=== PATIENT | female | born 1925 | race Caucasian/White ===

== ENCOUNTER 2016-07-28 08:46 | Emergency (ER) | payer OTHER ==
--- NOTE | 2016-07-28 11:33 | ED ORDER SUMMARY ---
..... Patient: OLIVIA GASTON OrderSheet [facility] VisitID: [id number] [address] [place] [address] 89y, F Registration Date/Time: 07/28/2016 ORDER SHEET Weight: 58.9 kg (stated) Allergies: Codeine, Fentanyl GENERAL ORDERS: Pediatric Physician Assistant (Continuous) (:07/28/2016 SBalde R.N. per protocol) (9:34 MWinterer R.N.) UA-Culture if indicated Urgent (:07/28/2016 SBalde R.N. per protocol) (9:34 MWinterer R.N.) CBC w Diff Urgent (:07/28/2016 SBalde R.N. per protocol) (9:34 MWinterer R.N.) CMP Urgent (:07/28/2016 SBalde R.N. per protocol) (9:34 MWinterer R.N.) EKG - ER Stat (:07/28/2016 SBalde R.N. per protocol) (10:08 [place]) (Cancelled: Not ordered by me and not [id number] [place]) Pulse oximeter (:07/28/2016 SBalde R.N. per protocol) (9:34 MWinterer R.N.) Blood Culture (No) (N/A) Urgent (09:26 07/28/2016 [place]) (9:34 MWinterer R.N.) MEDICATION ORDERS: IV FLUIDS: IV Saline Lock (:07/28/2016 SBalde R.N. per protocol) (9:15 SBalde R.N.) IV NS : initial bolus 500 mL (1000 mL/hr), then 1000 mL/hr for X1 (NOW) (10:04 07/28/2016 [place]) (Ack 10:19 MWinterer R.N.) (10:24 MWinterer R.N.) Ceftriaxone IV 1 gm/50mL (NOW) (11:59 07/28/2016 [place]) (12:10 DREassadarrick R.N.) ORDER SHEET NOTES: [Electronically signed by Leif Taylor Dr. (11:39 07/28/2016)] [Electronically signed by Deborah Carrion R.N. (14:07/28/2016)] [Electronically locked/signed by Deborah Carrion R.N. (07/28/2016)]
--- NOTE | 2016-07-28 11:33 | ED NURSING NOTES ---
Clinical Report - Nurses [facility] [address] [place] [address] 07/28/2016 8:48 Patient: OLIVIA GASTON TRIAGE Triage time 08:52 Jul 28 2016. Acuity: LEVEL 3. Chief Complaint: DIZZINESS and WEAKNESS. Alert. No acute distress. JB COMA SCORE: [place] Coma Scale: 15- eyes open spontaneously (4); best verbal response- oriented x 4 (5); best motor response- obeys commands (6). --09:10 Lory Joseph R.N. 08:51 07/28/16. BP: 146/84. HR: 74. RR: 18. O2 saturation: 100%. Temp: 98.5 F. Pain level now 10/21. --09:10 Lory Joseph R.N. Weight: 58.9 kg stated. Height/Length: 66 inches Per Patient. BMI: 21. --08:51 Lory Joseph R.N. Medications Acetaminophen Oral (Tablet 325 mg) 2 tablets, 4x a day as needed (Pain). Aspirin Oral (Tablet 81 mg) 1 tablet, daily. Atorvastatin Calcium Oral (Tablet 10 mg) 1/2 tablet, 2x a day. Benzonatate Oral (Capsule 100 mg) 1 capsule, 3x a day. Docusate Calcium Oral 100 mg, twice daily. Ferrous Sulfate Oral (Tablet 325 (65 Fe) mg) 1 tablet, daily. Levobunolol HCl Ophthalmic (Solution 0.5 %) 1 drop (R eye). Lisinopril Oral (Tablet 20 mg) 1 tablet, daily. Lumigan Ophthalmic (Solution 0.01 %) 1 drop (R eye). Metoprolol Tartrate Oral (Tablet 50 mg) 1 tablet, daily. ProAir HFA Inhalation 2 puffs, daily. Refresh Ophthalmic 2 drops, every 4 hours as needed. Senna Oral (Tablet 8.6 mg) 2 tablets, daily as needed. Tramadol HCL Oral (Tablet 50 mg) 1 tablet, daily. --09:09 Jake, Lory, R.N. Allergies Codeine. Fentanyl. --: Loyr Joseph R.N. History Arrived by EMS. Historian: patient. ( "MY HEAD IS ALL CONFUSED". "I FEEL LIKE I CAN'T GET UP, I DON'T KNOW WHAT'S GOING ON". "SLEEP ALOT"). This started SINCE THE HOLIDAYS. Treatment HEALTH PLAN SPECIALIST: None. SOCIAL HX: Former smoker. No alcohol use or drug use. No infectious disease exposure. FALL RISK ASSESSMENT: Fall risk assessment completed. No fall risk identified. NUTRITIONAL RISK ASSESSMENT: The nutritional risk assessment revealed no deficiencies. FUNCTIONAL ASSESSMENT: Functional assessment: no impairments noted. LEARNING NEEDS ASSESSMENT: The learning needs assessment revealed no barriers. SKIN INTEGRITY ASSESSMENT: Skin integrity risk assessment completed. No skin integrity risk identified. --: Lory Joseph R.N. PROBLEMS: Diarrhea. Renal Insufficiency. Dehydration. Cystitis. Pelvic Fracture. Oral Anticoagulation Therapy. Glaucoma. Hypertension. Pacemaker. Hyponatremia. Pressure Ulcer. Spinal Fracture. Anemia. Back Pain. Abrasion(s). Contusion. Tetanus Status. Abdominal Pain. Sjogren's syndrome. Arthritis. Vertigo. Abnormal Test. LNMP - Last Normal Menstrual Period. Fall. Pneumonia. Immunizations. Incontinence. Neuropathy. URI. Glaucoma in right eye. TIA - Transient Ischemic Attack. UTI - Urinary Tract Infection. Bradycardia. --: Lory Joseph R.N. ADDITIONAL SURGERIES: Appendectomy. Cataract Surgery. Hysterectomy. Pacemaker. Tonsillectomy. --: Lory Joseph R.N. Interventions ID band on patient. To room. --: Lory Joseph R.N. PHYSICAL ASSESSMENT To room via stretcher. GENERAL / NEURO / PSYCH: Appears anxious. HEENT: Pupils equal, round and reactive to light. RESPIRATORY: Respirations not labored. CVS: Capillary refill less than 2 seconds. GI / : Abdominal tenderness in the lower abdomen. --:16 Lory Joseph R.N. SKIN: Skin is warm and dry. --:16 Lory Joseph R.N. SKIN: ( pt has a dime size skin breakdown on the tailbone, superficial abrasions around the tailbone area and upper buttock. Zinc cream applied.). --11:55 Lory Joseph R.N. NURSING PROGRESS NOTES Patient ID band checked. Catheterized urine collected with return of yellow-colored cloudy urine, sediment noted; sample sent to lab for urinalysis. Specimen labeled in the presence of the patient. --09:11 Lory Joseph R.N. personnel monitor, pulse oximeter and NIBP monitor placed on patient; equipment monitor phototypesetting- Lead II. Patient gowned. Patient ready for evaluation- chart flagged and ED physician notified. --09:11 Lory Joseph R.N. 09:12 07/28/2016 Site #1 started via IV in the left forearm with an 20g angiocath; one attempt. Blood drawn: rainbow set. Labeled in the presence of the patient and sent to the lab. Saline lock flushed with 10 mL saline. --09:12 Lory Joseph R.N. 10:24 07/28/2016 Started bag #1 1000 mL IV Fluids IV NS (Saline); at 999 mL/hr over 30 minute(s) via site #1 via IV pump. Allergies verified and confirmed 5 rights. IV patency established. IV site checked: no pain, redness, or swelling. IV flushed thoroughly pre- and post-medication administration. --10:24 Nadia Uribe R.N. 10:45 07/28/16. BP: 162/62. HR: 60. RR: 12. O2 saturation: 99% on room air. Pain level now: 0/10. --10:58 Deborah Carrion R.N. Cardiac rhythm: atrial pacing. Monitoring of patient in place. Patient hygiene performed. Patient is incontinent of urine. Changed patient linens and diaper. Warming measures: blanket applied. Reassurance given and given. The patient is calm and resting quietly. ( Pt repositioned for comfort.). GENERAL / NEURO / PSYCH: Patient is calm and cooperative. Affect appears normal. Alert. Oriented X 4. RESPIRATORY: No respiratory distress. SKIN: Skin is warm and dry. Patient identifiers checked. Call light placed in reach. Side rails up x 2. Bed placed in lowest position. Brakes of bed on. Brakes of chair on. --10:58 Deborah Carrion R.N. EKG time: (10:06 AM). EKG was performed by a micha and shown to the ED physician. --11:19 Rhiannon Navarro 12:10 07/28/2016 Started 1 gm of Ceftriaxone IVPB in bag #1 50 mL; at 150 mL/hr over 1 hour(s) via site #1 via IV pump. Allergies verified and confirmed 5 rights. IV patency established. IV site checked: no pain, redness, or swelling. IV flushed thoroughly pre- and post-medication administration. --12:10 Deborah Carrion R.N. 12:10 07/28/2016 IV Fluids IV NS Response: no adverse reaction symptoms have improved. --12:10 Deborah Carrion R.N. Cardiac rhythm: atrial pacing; (atrial rate). Monitoring of patient in place. Reassurance given. Reassessment after fluids administered. She is calm and resting quietly. Overall patient status is improved- she states feels better. ( Family at bedside, IV antibiotics infusing as ordered, will be discharging soon, arranging ride back to facility). GENERAL / NEURO / PSYCH: Denies anxiety or headache. Patient is calm and cooperative. Affect appears normal. Alert. Oriented X 4. RESPIRATORY: Denies difficulty breathing. No respiratory distress. CVS: Denies chest pain. Cardiac rhythm: atrial pacing. SKIN: Skin is warm and dry. Patient identifiers checked. Side rails up. Brakes of bed on. Brakes of chair on. --12:16 Deborah Carrion R.N. 12:10 07/28/16. BP: 149/70 (regular adult cuff) taken on the right arm, while lying. HR: 65. RR: 18. O2 saturation: 96% on room air. Temp: 98.2 F (oral). Pain level now: 0/10. --12:16 Deborah Carrion R.N. ( [facility] updated on pt status. Pt will be returning via [facility] because pt is w/c bound. Family aware. A RX was sent with family to have CSL fill. A [employer] was sent along for skin breakdown and some Zinc ointment provided for skin. Family aware of all of this.). --12:43 Lory Joseph R.N. 12:46 07/28/2016 Ceftriaxone IVPB Discontinued: infused. Total amount infused: 50 mL. IV patency established. IV site checked: no pain, redness, or swelling. IV flushed thoroughly. --12:46 Lory Joseph R.N. 14:00 07/28/2016 IV Fluids IV NS Discontinued: bag #1 completed upon discharge. Total amount infused: 750 mL. --14:30 Deborah Carrion R.N. DISPOSITION / DISCHARGE Report was given. (Bárbara WILDER has been given report.). --12:44 Lory Joseph R.N. 13:38 07/28/2016 Site #1 removed upon discharge. Catheter intact. Manual pressure and bandaid applied. --13:48 Deborah Carrion R.N. Condition at departure: improved and stable. The goals identified in the patient's plan of care were met. Fall risk assessment completed. Risk factors identified include patient age greater than 65 years and impairment of mobility. Fall interventions initiated. Patient placed in wheelchair. Call light in reach of patient. Instructed not to get up without assistance. No learning barriers present. Discharge instructions provided and reviewed ([facility]). Reviewed medication(s) side effects, precautions, dosing and course information. Prescription(s) given to the public relations professional (Rx given to family). Family verbalized understanding. Written instructions provided in French. The patient was discharged by the physician. She was discharged to the longterm and accompanied by [facility]. She left the Emergency Department in a wheelchair. Driving ([facility]). Transferred. Summary of care provided to transfer facility via paper and fax. Transported via wheelchair. JB COMA SCORE: Jb Coma Scale: 15- eyes open spontaneously (4); best verbal response- oriented x 4 (5); best motor response- obeys commands (6). --13:52 Deborah Carrion R.N. 13:40 07/28/16. BP: 127/96 (regular adult cuff) taken on the right arm, via an automated monitor, while lying. HR: 60. RR: 14. O2 saturation: 98% on room air. Temp: 98.2 F (oral). Pain level now: 0/10. --13:52 Deborah Carrion R.N. Departure time: 1430 PM. ( Transported via wheelchair back to facility safely,). --14:29 Deborah Carrion R.N. Locked/Released at 07/28/2016 14:30 by Deborah Carrion R.N.
--- NOTE | 2016-07-28 11:33 | ED ORDER SUMMARY ---
..... Patient: OLIVIA GASTON OrderSheet [facility] VisitID: [id number] [address] [place] [address] 89y, F Registration Date/Time: 07/28/2016 ORDER SHEET Weight: 58.9 kg (stated) Allergies: Codeine, Fentanyl GENERAL ORDERS: Cotton Classer Aide (Continuous) (:07/28/2016 SBalde R.N. per protocol) (9:34 MWinterer R.N.) UA-Culture if indicated Urgent (:07/28/2016 SBalde R.N. per protocol) (9:34 MWinterer R.N.) CBC w Diff Urgent (:07/28/2016 SBalde R.N. per protocol) (9:34 MWinterer R.N.) CMP Urgent (:07/28/2016 SBalde R.N. per protocol) (9:34 MWinterer R.N.) EKG - ER Stat (:07/28/2016 SBalde R.N. per protocol) (10:08 [place]) (Cancelled: Not ordered by me and not :14 [place]) Pulse oximeter (:07/28/2016 SBalde R.N. per protocol) (9:34 MWinterer R.N.) Blood Culture (No) (N/A) Urgent (09:26 07/28/2016 [place]) (9:34 MWinterer R.N.) MEDICATION ORDERS: IV FLUIDS: IV Saline Lock (:07/28/2016 SBalde R.N. per protocol) (9:15 SBalde R.N.) IV NS : initial bolus 500 mL (1000 mL/hr), then 1000 mL/hr for X1 (NOW) (10:04 07/28/2016 [place]) (Ack 10:19 MWinterer R.N.) (10:24 MWinterer R.N.) Ceftriaxone IV 1 gm/50mL (NOW) (11:59 07/28/2016 [place]) (12:10 DREassadarrick R.N.) ORDER SHEET NOTES: [Electronically signed by Leif Taylor Dr. (11:39 07/28/2016)] [Electronically signed by Deborah Carrion R.N. (14:07/28/2016)] [Electronically locked/signed by Deborah Carrion R.N. (07/28/2016)]
--- NOTE | 2016-07-28 11:33 | ED CLINICAL REPORT ---
Clinical Report - Physicians/Mid Levels [facility] [address] [place] [address] 07/28/2016 8:48 Patient: OLIVIA GASTON Time Seen: 09:04; initial patient contact. Arrived- By ambulance. Historian- patient. HISTORY OF PRESENT ILLNESS Chief Complaint: DYSURIA. This started about 2 weeks ago and still present. The symptoms are described as mild. Modifying factors- worsened by urination. Not relieved by anything. The patient has had mild, constant abdominal pain. The pain is described as located in the suprapubic region. No nausea, vomiting, diarrhea or radiation of abdominal pain to the back. No low back pain, flank pain, vaginal discharge, pain with urination or hematuria. The patient has had urinary frequency. The patient has had urgency of urination. Not sexually active. (Outpt Tx ~ 2 weeks ago by PCP, seemed to clear up initial UTI, had diarrhea for several days but cleared up. UTI symptoms returned.). Similar symptoms previously: Several times. Recent medical care: Not recently seen/assessed. REVIEW OF SYSTEMS No nausea, vomiting, diarrhea or fever. She has had chills. All systems otherwise negative, except as recorded above. PAST HISTORY ( Diarrhea. Renal Insufficiency. Dehydration. Cystitis. Pelvic Fracture. Oral Anticoagulation Therapy. Glaucoma. Hypertension. Pacemaker. Hyponatremia. Pressure Ulcer. Spinal Fracture. Anemia. Back Pain. Abrasion(s). Contusion. Tetanus Status. Abdominal Pain. Sjogren's syndrome. Arthritis. Vertigo. Abnormal Test. LNMP - Last Normal Menstrual Period. Fall. Pneumonia. Immunizations. Incontinence. Neuropathy. URI. Glaucoma in right eye. TIA - Transient Ischemic Attack. UTI - Urinary Tract Infection. Bradycardia. SURGERIES: Appendectomy. Cataract Surgery. Hysterectomy. Pacemaker. Tonsillectomy.). SOCIAL HISTORY Former smoker. No alcohol use or drug use. ADDITIONAL NOTES The nursing notes have been reviewed with agreement regarding the chief complaint, PMH and patient medications and allergies. PHYSICAL EXAM Vital Signs: 07/28/2016 08:51 BP: 146/84. HR: 74. RR: 18. O2 saturation: 100%. Temp: 98.5 F. Have been reviewed. Hypertensive. Heart rate normal. Respiratory rate normal. Temperature normal. Oxygen saturation normal. Appearance: Alert. Oriented X3. No acute distress. ENT: Dry mucous membranes present (Pt has Sjorgrens.). Neck: Neck supple. CVS: Bradycardia. Heart sounds normal. Rhythm normal. Respiratory: No respiratory distress. Breath sounds normal. Abdomen: Soft. Mild tenderness in the suprapubic area. No guarding or rebound tenderness. Bowel sounds normal. No mass. Skin: Skin warm and dry. Normal skin color. Normal skin turgor. Extremities: No calf tenderness. No lower extremity edema. Neuro: Oriented X 3. Mood/affect normal. No motor deficit. LABS, X-RAYS, AND EKG Laboratory Tests: UA-Culture if indicated: (MICHELLE: 07/28/2016 09:00) ( [facility] 10:18) Final results Test Result Flag Units (Reference) URINE COLOR YELLOW URINE APPEARANCE CLOUDY URINE GLUCOSE NEGATIVE (NEGATIVE) URINE BILIRUBIN NEGATIVE (NEGATIVE) URINE KETONE NEGATIVE (NEGATIVE) URINE SPECIFIC GRAVITY 1.025 (1.010-1.030) URINE PH 6.0 (5.0-8.0) URINE PROTEIN 2+ (NEGATIVE) URINE UROBILINOGEN 0.2 EU/dL (0.2-1.0) URINE NITRITE POSITIVE (NEGATIVE) URINE BLOOD 3+ (NEGATIVE) URINE LEUK ESTERASE POSITIVE (NEGATIVE) URINE RBC 50-75 rbc/hpf (0-1) URINE WBC >100 wbc/hpf (0-1) URINE EPITHELIAL CELLS NONE SEEN EPI/hpf (0-5) URINE BACTERIA MODERATE (2+ TO 3+) (NONE SEEN) URINE COMMENT CULTURE INDICATED URINE CULTURES ARE SET-UP BASED ON THE FOLLOWING CRITERIA:POSITIVE NITRITEPOSITIVE LEUKOCYTE ESTERASEGREATER THAN 10 WHITE BLOOD CELLSMODERATE (2+) OR GREATER BACTERIA CBC w Diff: (MICHELLE: 07/28/2016 09:15) ( [facility] [place] 07/28/2016 10:06) Final results Test Result Flag Units (Reference) WHITE BLOOD COUNT 8.5 K/uL (4.5-11.5) RED BLOOD COUNT 3.54 L M/uL (4.00-5.20) HEMOGLOBIN 10.2 L gm/dL (12.0-16.0) HEMATOCRIT 31.0 L % (36.0-46.0) MEAN CELL VOLUME 88 fL (80-100) MEAN CORPUSCULAR HGB 29 pg (26-34) MEAN CORPUSCULAR HGB CONC 33 g/dL (31-37) RED CELL DISTRIBUTION WIDTH 15.3 H % (11.6-14.8) PLATELET COUNT 202 K/uL (150-400) NEUTROPHIL % 58.0 % (50-75) LYMPH % 28.2 % (25-40) MONO % 10.7 % (3-14) EOSINOPHIL % 2.6 % (0-4) BASOPHIL % 0.5 % (0-2) CMP: (MICHELLE: 07/28/2016 09:15) ( [facility] 07/28/2016 09:50) Final results Test Result Flag Units (Reference) GLUCOSE 95 mg/dL (70-110) BUN 38 H mg/dL (7-18) CREATININE 2.1 H mg/dL (0.6-1.3) Estimated GFR 23.57 mL/min Estimated GFR- 28.57 mL/min Note: Persistent reduction over 3 months in eGFR<60 mL/min/1.73 m2 defines CKD. Patients with eGFR values>=60 mL/min/1.73 m2 may also have CKD if evidence ofpersistent proteinuria. Additional information may be foundat www.kidney.org. SODIUM 135 L mmol/L (136-145) POTASSIUM 5.1 mmol/L (3.5-5.1) CHLORIDE 106 mmol/L (98-107) CARBON DIOXIDE 21 mmol/L (21-32) CALCIUM 8.3 L mg/dL (8.5-10.1) TOTAL PROTEIN 7.3 g/dL (6.4-8.2) ALBUMIN 2.9 L g/dL (3.3-5.0) BILIRUBIN, TOTAL 0.5 mg/dL (0.0-1.0) ALKALINE PHOSPHATASE 118 H U/L (46-116) AST (SGOT) 30 U/L (15-37) ALT (SGPT) 33 U/L (12-78) . PROGRESS AND PROCEDURES Course of Care: 11:32 07/28/16. No S/S of urosepsis and nl blood work. No confusion noted on my 2 encounters with the patient this AM. Pt agreeable to comfortable w/ outpt f/u. 07/28/2016 10:45 BP: 162/62. HR: 60. RR: 12. O2 saturation: 99%. Pain level now: 0/10. Vital Signs: have been reviewed. Hypertensive. Heart rate normal. Respiratory rate normal. Oxygen saturation normal. Disposition: Discharged to intermediate in good and improved condition. Condition: good. CLINICAL IMPRESSION Acute urinary tract infection with cystitis. INSTRUCTIONS Your Current Medications: CONTINUE TAKING THE FOLLOWING MEDICATIONS: Acetaminophen Oral : Tablet 325 mg, 2 tablets 4x a day, prn, Pain. Aspirin Oral : Tablet 81 mg, 1 tablet daily. Atorvastatin Calcium Oral : Tablet 10 mg, 1/2 tablet 2x a day. Benzonatate Oral : Capsule 100 mg, 1 capsule 3x a day. Docusate Calcium Oral : 100 mg twice daily. Ferrous Sulfate Oral : Tablet 325 (65 Fe) mg, 1 tablet daily. Levobunolol HCl Ophthalmic : Solution 0.5 %, 1 drop, R eye. Lisinopril Oral : Tablet 20 mg, 1 tablet daily. Lumigan Ophthalmic : Solution 0.01 %, 1 drop, R eye. Metoprolol Tartrate Oral : Tablet 50 mg, 1 tablet daily. ProAir HFA Inhalation : 2 puffs daily. Refresh Ophthalmic : 2 drops every 4 hours, prn. Senna Oral : Tablet 8.6 mg, 2 tablets daily, prn. Tramadol HCL Oral : Tablet 50 mg, 1 tablet daily. Prescription Medications: Cipro 250 mg. Substitution is permissible. (250 mg PO q 18 hours x 7 doses Disp #7 no refills) Follow-up: Follow up with your doctor in about two days. Call for an appointment. Blood pressure screening was not performed during this visit because the patient has an active diagnosis of hypertension. The patient should follow up with a primary care provider for blood pressure management. (Electronically signed by Leif Taylor Dr. 07/28/2016 11:39)
--- NOTE | 2016-07-28 11:33 | ED NURSING NOTES ---
Clinical Report - Nurses [facility] [address] [place] [address] 07/28/2016 8:48 Patient: OLIVIA GASTON TRIAGE Triage time 08:52 Jul 28 2016. Acuity: LEVEL 3. Chief Complaint: DIZZINESS and WEAKNESS. Alert. No acute distress. JB COMA SCORE: [employer] [place] Coma Scale: 15- eyes open spontaneously (4); best verbal response- oriented x 4 (5); best motor response- obeys commands (6). --09:10 Lory Joseph R.N. 08:51 07/28/16. BP: 146/84. HR: 74. RR: 18. O2 saturation: 100%. Temp: 98.5 F. Pain level now 10/21. --09:10 Lory Joseph R.N. Weight: 58.9 kg stated. Height/Length: 66 inches Per Patient. BMI: 21. --08:51 Lory Joseph R.N. Medications Acetaminophen Oral (Tablet 325 mg) 2 tablets, 4x a day as needed (Pain). Aspirin Oral (Tablet 81 mg) 1 tablet, daily. Atorvastatin Calcium Oral (Tablet 10 mg) 1/2 tablet, 2x a day. Benzonatate Oral (Capsule 100 mg) 1 capsule, 3x a day. Docusate Calcium Oral 100 mg, twice daily. Ferrous Sulfate Oral (Tablet 325 (65 Fe) mg) 1 tablet, daily. Levobunolol HCl Ophthalmic (Solution 0.5 %) 1 drop (R eye). Lisinopril Oral (Tablet 20 mg) 1 tablet, daily. Lumigan Ophthalmic (Solution 0.01 %) 1 drop (R eye). Metoprolol Tartrate Oral (Tablet 50 mg) 1 tablet, daily. ProAir HFA Inhalation 2 puffs, daily. Refresh Ophthalmic 2 drops, every 4 hours as needed. Senna Oral (Tablet 8.6 mg) 2 tablets, daily as needed. Tramadol HCL Oral (Tablet 50 mg) 1 tablet, daily. --09:09 Jake, Lory, R.N. Allergies Codeine. Fentanyl. --: Lory Joseph R.N. History Arrived by EMS. Historian: patient. ( "MY HEAD IS ALL CONFUSED". "I FEEL LIKE I CAN'T GET UP, I DON'T KNOW WHAT'S GOING ON". "SLEEP ALOT"). This started SINCE THE HOLIDAYS. 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 SOCIAL HX: Former smoker. No alcohol use or drug use. No infectious disease exposure. FALL RISK ASSESSMENT: Fall risk assessment completed. No fall risk identified. NUTRITIONAL RISK ASSESSMENT: The nutritional risk assessment revealed no deficiencies. FUNCTIONAL ASSESSMENT: Functional assessment: no impairments noted. LEARNING NEEDS ASSESSMENT: The learning needs assessment revealed no barriers. SKIN INTEGRITY ASSESSMENT: Skin integrity risk assessment completed. No skin integrity risk identified. --: Lory Joseph R.N. PROBLEMS: Diarrhea. Renal Insufficiency. Dehydration. Cystitis. Pelvic Fracture. Oral Anticoagulation Therapy. Glaucoma. Hypertension. Pacemaker. Hyponatremia. Pressure Ulcer. Spinal Fracture. Anemia. Back Pain. Abrasion(s). Contusion. Tetanus Status. Abdominal Pain. Sjogren's syndrome. Arthritis. Vertigo. Abnormal Test. LNMP - Last Normal Menstrual Period. Fall. Pneumonia. Immunizations. Incontinence. Neuropathy. URI. Glaucoma in right eye. TIA - Transient Ischemic Attack. UTI - Urinary Tract Infection. Bradycardia. --: Lory Joseph R.N. ADDITIONAL SURGERIES: Appendectomy. Cataract Surgery. Hysterectomy. Pacemaker. Tonsillectomy. --: Lory Joseph R.N. Interventions ID band on patient. To room. --: Lory Joseph R.N. PHYSICAL ASSESSMENT To room via stretcher. GENERAL / NEURO / PSYCH: Appears anxious. HEENT: Pupils equal, round and reactive to light. RESPIRATORY: Respirations not labored. CVS: Capillary refill less than 2 seconds. GI / : Abdominal tenderness in the lower abdomen. --:16 Lory Joseph R.N. SKIN: Skin is warm and dry. --:16 Lory Joseph R.N. SKIN: ( pt has a dime size skin breakdown on the tailbone, superficial abrasions around the tailbone area and upper buttock. Zinc cream applied.). --11:55 Lory Joseph R.N. NURSING PROGRESS NOTES Patient ID band checked. Catheterized urine collected with return of yellow-colored cloudy urine, sediment noted; sample sent to lab for urinalysis. Specimen labeled in the presence of the patient. --09:11 Lory Joseph R.N. guide dog trainer, pulse oximeter and NIBP monitor placed on patient; java support engineer- Lead II. Patient gowned. Patient ready for evaluation- chart flagged and ED physician notified. --09:11 Lory Joseph R.N. 09:12 07/28/2016 Site #1 started via IV in the left forearm with an 20g angiocath; one attempt. Blood drawn: rainbow set. Labeled in the presence of the patient and sent to the lab. Saline lock flushed with 10 mL saline. --09:12 Lory Joseph R.N. 10:24 07/28/2016 Started bag #1 1000 mL IV Fluids IV NS (Saline); at 999 mL/hr over 30 minute(s) via site #1 via IV pump. Allergies verified and confirmed 5 rights. IV patency established. IV site checked: no pain, redness, or swelling. IV flushed thoroughly pre- and post-medication administration. --10:24 Nadia Uribe R.N. 10:45 07/28/16. BP: 162/62. HR: 60. RR: 12. O2 saturation: 99% on room air. Pain level now: 0/10. --10:58 Deborah Carrion R.N. Cardiac rhythm: atrial pacing. Monitoring of patient in place. Patient hygiene performed. Patient is incontinent of urine. Changed patient linens and diaper. Warming measures: blanket applied. Reassurance given and given. The patient is calm and resting quietly. ( Pt repositioned for comfort.). GENERAL / NEURO / PSYCH: Patient is calm and cooperative. Affect appears normal. Alert. Oriented X 4. RESPIRATORY: No respiratory distress. SKIN: Skin is warm and dry. Patient identifiers checked. Call light placed in reach. Side rails up x 2. Bed placed in lowest position. Brakes of bed on. Brakes of chair on. --10:58 Deborah Carrion R.N. EKG time: (10:06 AM). EKG was performed by a micha and shown to the ED physician. --11:19 Rhiannon Navarro 12:10 07/28/2016 Started 1 gm of Ceftriaxone IVPB in bag #1 50 mL; at 150 mL/hr over 1 hour(s) via site #1 via IV pump. Allergies verified and confirmed 5 rights. IV patency established. IV site checked: no pain, redness, or swelling. IV flushed thoroughly pre- and post-medication administration. --12:10 Deborah Carrion R.N. 12:10 07/28/2016 IV Fluids IV NS Response: no adverse reaction symptoms have improved. --12:10 Deborah Carrion R.N. Cardiac rhythm: atrial pacing; (atrial rate). Monitoring of patient in place. Reassurance given. Reassessment after fluids administered. She is calm and resting quietly. Overall patient status is improved- she states feels better. ( Family at bedside, IV antibiotics infusing as ordered, will be discharging soon, arranging ride back to facility). GENERAL / NEURO / PSYCH: Denies anxiety or headache. Patient is calm and cooperative. Affect appears normal. Alert. Oriented X 4. RESPIRATORY: Denies difficulty breathing. No respiratory distress. CVS: Denies chest pain. Cardiac rhythm: atrial pacing. SKIN: Skin is warm and dry. Patient identifiers checked. Side rails up. Brakes of bed on. Brakes of chair on. --12:16 Deborah Carrion R.N. 12:10 07/28/16. BP: 149/70 (regular adult cuff) taken on the right arm, while lying. HR: 65. RR: 18. O2 saturation: 96% on room air. Temp: 98.2 F (oral). Pain level now: 0/10. --12:16 Deborah Carrion R.N. ( [facility] updated on pt status. Pt will be returning via [facility] because pt is w/c bound. Family aware. A RX was sent with family to have CSL fill. A Waffle Mattress was sent along for skin breakdown and some Zinc ointment provided for skin. Family aware of all of this.). --12:43 Lory Joseph R.N. 12:46 07/28/2016 Ceftriaxone IVPB Discontinued: infused. Total amount infused: 50 mL. IV patency established. IV site checked: no pain, redness, or swelling. IV flushed thoroughly. --12:46 Lory Joseph R.N. 14:00 07/28/2016 IV Fluids IV NS Discontinued: bag #1 completed upon discharge. Total amount infused: 750 mL. --14:30 Deborah Carrion R.N. DISPOSITION / DISCHARGE Report was given. (Bárbara WILDER has been given report.). --12:44 Lory Joseph R.N. 13:38 07/28/2016 Site #1 removed upon discharge. Catheter intact. Manual pressure and bandaid applied. --13:48 Deborah Carrion R.N. Condition at departure: improved and stable. The goals identified in the patient's plan of care were met. Fall risk assessment completed. Risk factors identified include patient age greater than 65 years and impairment of mobility. Fall interventions initiated. Patient placed in wheelchair. Call light in reach of patient. Instructed not to get up without assistance. No learning barriers present. Discharge instructions provided and reviewed ([facility]). Reviewed medication(s) side effects, precautions, dosing and course information. Prescription(s) given to the load out supervisor (Rx given to family). Family verbalized understanding. Written instructions provided in Romansh. The patient was discharged by the physician. She was discharged to the group home and accompanied by [facility]. She left the Emergency Department in a wheelchair. Driving ([facility]). Transferred. Summary of care provided to transfer facility via paper and fax. Transported via wheelchair. JB COMA SCORE: Jb Coma Scale: 15- eyes open spontaneously (4); best verbal response- oriented x 4 (5); best motor response- obeys commands (6). --13:52 Deborah Carrion R.N. 13:40 07/28/16. BP: 127/96 (regular adult cuff) taken on the right arm, via an automated monitor, while lying. HR: 60. RR: 14. O2 saturation: 98% on room air. Temp: 98.2 F (oral). Pain level now: 0/10. --13:52 Deborah Carrion R.N. Departure time: 1430 PM. ( Transported via wheelchair back to facility safely,). --14:29 Deborah Carrion R.N. Locked/Released at 07/28/2016 14:30 by Deborah Carrion R.N.
--- NOTE | 2016-07-28 14:31 | ED MED RECONCILIATION SUMMARY ---
Patient: OLIVIA GASTON Medication Reconciliation Report [facility] VisitID: [id number] [address] [place] [address] 89y, F Registration Date/Time: 07/28/2016 Weight: 58.9 kg Height/Length: 66 in. BMI: 21.0 ALLERGIES: Codeine, Fentanyl The patient's Home Medications are listed below: CONTINUE TAKING THE FOLLOWING MEDICATIONS: Acetaminophen Oral (325 mg) 2 tablets, 4x a day, Pain Aspirin Oral (81 mg) 1 tablet, daily Atorvastatin Calcium Oral (10 mg) 1/2 tablet, 2x a day Benzonatate Oral (100 mg) 1 capsule, 3x a day Docusate Calcium Oral 100 mg, twice daily Ferrous Sulfate Oral (325 (65 Fe) mg) 1 tablet, daily Levobunolol HCl Ophthalmic (0.5 %) 1 drop, R eye Lisinopril Oral (20 mg) 1 tablet, daily Lumigan Ophthalmic (0.01 %) 1 drop, R eye Metoprolol Tartrate Oral (50 mg) 1 tablet, daily ProAir HFA Inhalation 2 puffs, daily Refresh Ophthalmic 2 drops, every 4 hours Senna Oral (8.6 mg) 2 tablets, daily Tramadol HCL Oral (50 mg) 1 tablet, daily The source(s) of the original Home Medication information: Not obtained. The following Medications were given to the patient in the Emergency Department: IV NS IV Fluids bolus 0, then 999 mL/hr, administered: 07/28/2016 10:24:00 AM Ceftriaxone [IVPB] IVPB bolus 0, then 1 gm 150 mL/hr, administered: 07/28/2016 12:10:00 PM The following Medications were prescribed to the patient: Cipro 250 mg. Substitution is permissible.(250 mg PO q 18 hours x 7 doses Disp #7 no refills) -- Leif Taylor Dr.
--- NOTE | 2016-07-28 14:31 | ED MAR SUMMARY ---
..... Medication Administration Record [facility] [address] [place] [address] Patient: OLIVIA GASTON Visit ID: [id number] 89y, F Weight: 58.9 kg Height/Length: 66 in BMI: 21 ALLERGIES: Codeine, Fentanyl Start 10:24 07/28/2016 Nadia Uribe R.N., Stop 14:00 07/28/2016 Deborah Carrion R.N. Medication Administered: IV NS (SALINE), Dose: IV Fluids over 30 minute(s), Rate: 999 mL/hr, Dispensed: 1000 mL bag, Site: #1 left forearm. Medication Ordered: IV NS : initial bolus 500 mL (1000 mL/hr), then 1000 mL/hr for X1 (NOW). Start 12:10 07/28/2016 Deborah Carrion RPrateek, Stop 12:46 07/28/2016 Lory Joseph RPrateek Medication Administered: CEFTRIAXONE [IVPB], Dose: 1 gm IVPB over 1 hour(s), Rate: 150 mL/hr, Dispensed: 50 mL bag, Site: #1 left forearm. Medication Ordered: Ceftriaxone IV 1 gm/50mL (NOW).
--- NOTE | 2016-07-28 14:31 | ED DISCHARGE INSTRUCTIONS ---
Patient: OLIVIA GASTON General Instructions [facility] VisitID: [id number] [place] [address] 89y, F Registration Date/Time: 07/28/2016 Acute urinary tract infection with cystitis. INSTRUCTIONS Your Current Medications: CONTINUE TAKING THE FOLLOWING MEDICATIONS: Acetaminophen Oral : Tablet 325 mg, 2 tablets 4x a day, prn, Pain. Aspirin Oral : Tablet 81 mg, 1 tablet daily. Atorvastatin Calcium Oral : Tablet 10 mg, 1/2 tablet 2x a day. Benzonatate Oral : Capsule 100 mg, 1 capsule 3x a day. Docusate Calcium Oral : 100 mg twice daily. Ferrous Sulfate Oral : Tablet 325 (65 Fe) mg, 1 tablet daily. Levobunolol HCl Ophthalmic : Solution 0.5 %, 1 drop, R eye. Lisinopril Oral : Tablet 20 mg, 1 tablet daily. Lumigan Ophthalmic : Solution 0.01 %, 1 drop, R eye. Metoprolol Tartrate Oral : Tablet 50 mg, 1 tablet daily. ProAir HFA Inhalation : 2 puffs daily. Refresh Ophthalmic : 2 drops every 4 hours, prn. Senna Oral : Tablet 8.6 mg, 2 tablets daily, prn. Tramadol HCL Oral : Tablet 50 mg, 1 tablet daily. Prescription Medications: Cipro 250 mg. Substitution is permissible. (250 mg PO q 18 hours x 7 doses Disp #7 no refills) Follow-up: Follow up with your doctor in about two days. Call for an appointment. Blood pressure screening was not performed during this visit because the patient has an active diagnosis of hypertension. The patient should follow up with a primary care provider for blood pressure management. ADDITIONAL INFORMATION Bladder Infection,Female (Adult) A bladder infection ("cystitis" or "UTI") usually causes a constant urge to urinate and a burning when passing urine. Urine may be cloudy, smelly or dark. There may be pain in the lower abdomen. A bladder infection occurs when bacteria from the vaginal area enter the bladder opening (urethra). This can occur from sexual intercourse, wearing tight clothing, dehydration and other factors. Home Care: Drink lots of fluids (at least 6-8 glasses a day, unless you must restrict fluids for other medical reasons). This will force the medicine into your urinary system and flush the bacteria out of your body. Avoid sexual intercourse until your symptoms are gone. Avoid caffeine, alcohol and spicy foods. These can irritate the bladder. A bladder infection is treated with antibiotics. You may also be given Pyridium (generic = phenazopyridine) to reduce the burning sensation. This medicine will cause your urine to become a bright orange color. The orange urine may stain clothing. You may wear a pad or panty-liner to protect clothing. Preventing Future Infections: Always wipe from front to back after a bowel movement. Keep the genital area clean and dry. Drink plenty of fluids each day to avoid dehydration. Both sexual partners should wash before intercourse. Urinate right after intercourse to flush out the bladder. Wear cotton underwear and cotton-lined panty hose; avoid tight-fitting pants. If you are on control pills and are having frequent bladder infections, discuss with your doctor. Follow Up: Return to this facility or see your doctor if ALL symptoms are not gone after three days of treatment. Get Prompt Medical Attention if any of the following occur: Fever of 100.4F (38C) or higher, or as directed by your healthcare provider No improvement by the third day of treatment Increasing back or abdominal pain Repeated vomiting; unable to keep medicine down Weakness, dizziness or fainting Vaginal discharge Pain, redness or swelling in the labia (outer vaginal area) Ciprofloxacin Hydrochloride Oral tablet What is this medicine? CIPROFLOXACIN (sip geovany FLOX a sin) is a quinolone antibiotic. It is used to treat certain kinds of bacterial infections. It will not work for colds, flu, or other viral infections. How should I use this medicine? Take this medicine by mouth with a glass of water. Follow the directions on the prescription label. Take your medicine at regular intervals. Do not take your medicine more often than directed. Take all of your medicine as directed even if you think your are better. Do not skip doses or stop your medicine early. You can take this medicine with food or on an empty stomach. It can be taken with a meal that contains dairy or calcium, but do not take it alone with a dairy product, like milk or yogurt or calcium-fortified juice. A special MedGuide will be given to you by the pharmacist with each prescription and refill. Be sure to read this information carefully each time. Talk to your financial internship regarding the use of this medicine in children. Special care may be needed. What side effects may I notice from receiving this medicine? Side effects that you should report to your doctor or health dog day care attendant as soon as possible: - allergic reactions like skin rash, itching or hives, swelling of the face, lips, or tongue - breathing problems - confusion, nightmares or hallucinations - feeling faint or lightheaded, falls - irregular heartbeat - joint, muscle or tendon pain or swelling - pain or trouble passing urine -persistent headache with or without blurred vision - redness, blistering, peeling or loosening of the skin, including inside the mouth - seizure - unusual pain, numbness, tingling, or weakness Side effects that usually do not require medical attention (report to your doctor or health dog day care attendant if they continue or are bothersome): - diarrhea - nausea or stomach upset - white patches or sores in the mouth What may interact with this medicine? Do not take this medicine with any of the following medications: cisapride droperidol terfenadine tizanidine This medicine may also interact with the following medications: antacids caffeine cyclosporin didanosine (ddI) buffered tablets or powder medicines for diabetes medicines for inflammation like ibuprofen, naproxen methotrexate multivitamins omeprazole phenytoin probenecid sucralfate theophylline warfarin What if I miss a dose? If you miss a dose, take it as soon as you can. If it is almost time for your next dose, take only that dose. Do not take double or extra doses. Where should I keep my medicine? Keep out of the reach of children. Store at room temperature below 30 degrees C (86 degrees F). Keep container tightly closed. Throw away any unused medicine after the expiration date. What should I tell my health care provider before I take this medicine? They need to know if you have any of these conditions: -bone problems -cerebral disease -joint problems -irregular heartbeat -kidney disease -liver disease -myasthenia gravis -seizure disorder -tendon problems -an unusual or allergic reaction to ciprofloxacin, other antibiotics or medicines, foods, dyes, or preservatives - or trying to get -breast-feeding What should I watch for while using this medicine? Tell your doctor or health dog day care attendant if your symptoms do not improve. Do not treat diarrhea with over the counter products. Contact your doctor if you have diarrhea that lasts more than 2 days or if it is severe and watery. You may get drowsy or dizzy. Do not drive, use machinery, or do anything that needs mental alertness until you know how this medicine affects you. Do not stand or sit up quickly, especially if you are an older patient. This reduces the risk of dizzy or fainting spells. This medicine can make you more sensitive to the sun. Keep out of the sun. If you cannot avoid being in the sun, wear protective clothing and use sunscreen. Do not use sun lamps or tanning beds/booths. Avoid antacids, aluminum, calcium, iron, magnesium, and zinc products for 6 hours before and 2 hours after taking a dose of this medicine. You have been given the following additional information: Bladder Infection, Female (Adult) Ciprofloxacin Hydrochloride Oral tablet (Electronically signed by Leif Taylor Dr. 07/28/2016 11:39)
--- NOTE | 2016-07-28 14:31 | ED MED RECONCILIATION SUMMARY ---
Patient: OLIVIA GASTON Medication Reconciliation Report [facility] VisitID: [id number] [address] [place] [address] 89y, F Registration Date/Time: 07/28/2016 Weight: 58.9 kg Height/Length: 66 in. BMI: 21.0 ALLERGIES: Codeine, Fentanyl The patient's Home Medications are listed below: CONTINUE TAKING THE FOLLOWING MEDICATIONS: Acetaminophen Oral (325 mg) 2 tablets, 4x a day, Pain Aspirin Oral (81 mg) 1 tablet, daily Atorvastatin Calcium Oral (10 mg) 1/2 tablet, 2x a day Benzonatate Oral (100 mg) 1 capsule, 3x a day Docusate Calcium Oral 100 mg, twice daily Ferrous Sulfate Oral (325 (65 Fe) mg) 1 tablet, daily Levobunolol HCl Ophthalmic (0.5 %) 1 drop, R eye Lisinopril Oral (20 mg) 1 tablet, daily Lumigan Ophthalmic (0.01 %) 1 drop, R eye Metoprolol Tartrate Oral (50 mg) 1 tablet, daily ProAir HFA Inhalation 2 puffs, daily Refresh Ophthalmic 2 drops, every 4 hours Senna Oral (8.6 mg) 2 tablets, daily Tramadol HCL Oral (50 mg) 1 tablet, daily The source(s) of the original Home Medication information: Not obtained. The following Medications were given to the patient in the Emergency Department: IV NS IV Fluids bolus 0, then 999 mL/hr, administered: 07/28/2016 10:24:00 AM Ceftriaxone [IVPB] IVPB bolus 0, then 1 gm 150 mL/hr, administered: 07/28/2016 12:10:00 PM The following Medications were prescribed to the patient: Cipro 250 mg. Substitution is permissible.(250 mg PO q 18 hours x 7 doses Disp #7 no refills) -- Leif Taylor Dr.
--- NOTE | 2016-07-28 14:31 | ED MAR SUMMARY ---
..... Medication Administration Record [facility] [address] [place] [address] Patient: OLIVIA GASTON Visit ID: [id number] 89y, F Weight: 58.9 kg Height/Length: 66 in BMI: 21 ALLERGIES: Codeine, Fentanyl Start 10:24 07/28/2016 Nadia Uribe R.N., Stop 14:00 07/28/2016 Deborah Carrion R.N. Medication Administered: IV NS (SALINE), Dose: IV Fluids over 30 minute(s), Rate: 999 mL/hr, Dispensed: 1000 mL bag, Site: #1 left forearm. Medication Ordered: IV NS : initial bolus 500 mL (1000 mL/hr), then 1000 mL/hr for X1 (NOW). Start 12:10 07/28/2016 Deborah Carrion RPrateek, Stop 12:46 07/28/2016 Lory Joseph RPrateek Medication Administered: CEFTRIAXONE [IVPB], Dose: 1 gm IVPB over 1 hour(s), Rate: 150 mL/hr, Dispensed: 50 mL bag, Site: #1 left forearm. Medication Ordered: Ceftriaxone IV 1 gm/50mL (NOW).
[2016-09-19] MEDS ORDERED: LISINOPRIL10 MG PO ×2 (20:13→20:14)
[2016-09-19] MEDS ORDERED: DOCUSATE SODIU100 MG PO (20:15)
[2016-09-19] MEDS ORDERED: FERROUS SULFAT325 M1 PO (20:16)
[2016-09-19] MEDS ORDERED: METOPROLOL SUCC50 MG PO (20:18)
[2016-09-19] MEDS ORDERED: REFRESH TEARS0.5 % IO (20:20)
[2016-09-19] MEDS ORDERED: NYSTATIN100000 M2 TOP (20:23)
[2016-09-19] MEDS ORDERED: DULCOLAX10 MG PR (20:29)
[2016-09-19] MEDS ORDERED: MILK OF MAGNESI10 ML PO (20:32)
[2016-09-19] MEDS ORDERED: SENNA-LAX8.6 MG PO (20:35)
[2016-09-19] MEDS ORDERED: TRAMADOL HCL50 MG PO (20:36)
[2016-09-23] MEDS ORDERED: METOPROLOL SUCC50 MG PO (10:11)
== END 2016-07-28 14:30 | disposition home or self-care (01) ==
LOC: ED SRH 08:46
DX: N30.00 Acute cystitis without hematuria (principal); I10 Essential (primary) hypertension; Z87.891 Personal history of nicotine dependence; Z86.73 Personal history of transient ischemic attack (TIA), and cerebral infarction without residual deficits; Z88.5 Allergy status to narcotic agent
CPT/HCPCS: 81460; 90004; 90065; 90100; 90148; 90469; 95059

== ENCOUNTER 2016-09-02 19:43 | Inpatient (IN) | payer OTHER ==
[~2016-09-02] VITALS: Ht 162.6 cm; Wt 65.8 kg
--- NOTE | 2016-09-02 22:18 | ED CLINICAL REPORT ---
Clinical Report - Physicians/Mid Levels [facility] [address] [place] [address] 09/02/2016 19:43 Patient: OLIVIA GASTON Time Seen: 20:08; initial patient contact, initial documentation, patient care assumed. Arrived- By ambulance. Historian- patient. HISTORY OF PRESENT ILLNESS Chief Complaint: DYSURIA. This started about 2 months ago and still present. Modifying factors. Not worsened by anything. Not relieved by anything. No abdominal pain, pelvic pain, vaginal pain, low back pain or flank pain. No abnormal bleeding or vaginal discharge. She has had pain with urination. Similar symptoms previously: As bad. Recent medical care: The patient was seen recently in the office. ( txed here in Jul for uti, f/u with dr cohen). REVIEW OF SYSTEMS No nausea, vomiting, diarrhea, cough or difficulty breathing. No chest pain. She has had fever (didn't take it at home). muscle aches. All systems otherwise negative, except as recorded above. PAST HISTORY See nurses notes. ( PROBLEMS: Diarrhea. Renal Insufficiency. Dehydration. Cystitis. Pelvic Fracture. Oral Anticoagulation Therapy. Glaucoma. Hypertension. Pacemaker. Hyponatremia. Pressure Ulcer. Spinal Fracture. Anemia. Back Pain. Abrasion(s). Contusion. Tetanus Status. Abdominal Pain. Sjogren's syndrome. Arthritis. Vertigo. Abnormal Test. LNMP - Last Normal Menstrual Period. Fall. Pneumonia. Immunizations. Incontinence. Neuropathy. URI. Glaucoma in right eye. TIA - Transient Ischemic Attack. UTI - Urinary Tract Infection. Bradycardia. --20:12 Deborah Carrion, R.N. ADDITIONAL SURGERIES: Appendectomy. Cataract Surgery. Hysterectomy. Pacemaker. Tonsillectomy. --20:12 Deborah Carrion, R.N.). SOCIAL HISTORY Never smoker. No alcohol use or drug use. No recent travel. Is a local resident. FAMILY HISTORY Negative. ADDITIONAL NOTES The nursing notes have been reviewed with agreement regarding the chief complaint, HPI, ROS, PMH and patient medications and allergies. PHYSICAL EXAM Vital Signs: 09/02/2016 20:08 BP: 155/73. HR: 59. RR: 22. O2 saturation: 100%. Temp: 100.2 F. Pain level now: 0/10. Have been reviewed as abnormal and appear to be correct. Blood pressure normal. Heart rate normal. Respiratory rate normal. Febrile. Oxygen saturation normal. Appearance: Alert. Oriented X3. No acute distress. HEENT: Normal external inspection. ENT: Pharynx normal. Neck: Neck supple. CVS: Heart sounds normal. Respiratory: No respiratory distress. Breath sounds normal. Chest nontender. Abdomen: Soft and nontender. Back: Normal external inspection. Skin: Skin warm and dry. Normal skin color. Rash present. Normal skin turgor. Moderate, well-demarcated, erythematous, macular skin rash located on the genitalia (and groin). Extremities: Extremities nontender. No lower extremity edema. Neuro: Oriented X 3. Mood/affect normal. No motor deficit. No sensory deficit. LABS, X-RAYS, AND EKG EKG: EKG time: (2151). No acute process. No acute ischemia. Abnormal EKG. Narrow-complex bradycardia (ventricular rate 50). Sinus bradycardia. LVH. Left axis deviation. Normal EKG. The study has been interpreted contemporaneously by me (and Dr mcghee). The EKG appears to be a good tracing. Interpretation time: 2154. Laboratory Tests: UA-Culture if indicated: (MICHELLE: 09/02/2016 21:20) ( MsgRcvd 09/02/2016 21:42) Final results Test Result Flag Units (Reference) URINE COLOR YELLOW URINE APPEARANCE CLEAR URINE GLUCOSE NEGATIVE (NEGATIVE) URINE BILIRUBIN NEGATIVE (NEGATIVE) URINE KETONE NEGATIVE (NEGATIVE) URINE SPECIFIC GRAVITY 1.010 (1.010-1.030) URINE PH 6.0 (5.0-8.0) URINE PROTEIN 1+ (NEGATIVE) URINE UROBILINOGEN 0.2 EU/dL (0.2-1.0) URINE NITRITE POSITIVE (NEGATIVE) URINE BLOOD 2+ (NEGATIVE) URINE LEUK ESTERASE POSITIVE (NEGATIVE) URINE RBC NONE SEEN rbc/hpf (0-1) URINE WBC TNTC wbc/hpf (0-1) URINE EPITHELIAL CELLS NONE SEEN EPI/hpf (0-5) URINE BACTERIA FEW (1+) (NONE SEEN) URINE COMMENT CULTURE INDICATED URINE CULTURES ARE SET-UP BASED ON THE FOLLOWING CRITERIA:POSITIVE NITRITEPOSITIVE LEUKOCYTE ESTERASEGREATER THAN 10 WHITE BLOOD CELLSMODERATE (2+) OR GREATER BACTERIA CBC w Diff: (MICHELLE: 09/02/2016 21:00) ( [facility] 09/02/2016 21:31) Final results Test Result Flag Units (Reference) WHITE BLOOD COUNT 11.4 K/uL (4.5-11.5) RED BLOOD COUNT 3.59 L M/uL (4.00-5.20) HEMOGLOBIN 10.1 L gm/dL (12.0-16.0) HEMATOCRIT 31.2 L % (36.0-46.0) MEAN CELL VOLUME 87 fL (80-100) MEAN CORPUSCULAR HGB 28 pg (26-34) MEAN CORPUSCULAR HGB CONC 32 g/dL (31-37) RED CELL DISTRIBUTION WIDTH 15.2 H % (11.6-14.8) PLATELET COUNT 339 K/uL (150-400) NEUTROPHIL % 75.5 H % (50-75) LYMPH % 12.0 L % (25-40) MONO % 9.7 % (3-14) EOSINOPHIL % 1.7 % (0-4) BASOPHIL % 1.1 % (0-2) Lactate, Serum: (MICHELLE: 09/02/2016 21:00) ( [facility] 09/02/2016 22:04) Final results Test Result Flag Units (Reference) LACTIC ACID 1.3 mmol/L (0.4-2.0) [id number]: (MICHELLE: 09/02/2016 21:00) ( [facility] 09/02/2016 21:55) Final results Test Result Flag Units (Reference) PROCALCITONIN <0.5 ng/mL (0-0.5) PCT Concentration: Interpretation : Risk/option for action PCT <=0.5 ng/mL : Systemic : Low risk forinfection(sepsis): progression to severeis not likely. : systemic infection.Local bacterial : CAUTION-PCT levelsinfection is : below 0.5 ng/mL do notpossible. : exclude an infection,because localizedinfections (withoutsystemic signs) may beassociated with suchlow levels. If PCT ismeasured very earlyafter a bacterialchallenge (usually <6hours), these valuesmay still be low. Inthis case PCT shouldbe re-assessed 6-24hours later. PCT >0.5 and : Systemic infection: Moderate risk for<= 2 ng/mL : (sepsis) is : progression to severepossible, but : systemic infection.other conditions : The patient should beare known to : closely monitoredelevate PCT. : both clinically andby re-assessing PCTwithin 6-24 hours. PCT > 2 ng/mL : Systemic infection: High risk for(sepsis) is likely: progression to severeunless other : systemic infection.causes are known. : PCT >= 10 ng/mL : Important systemic: High likelihood ofinflammatory : severe sepsis orresponse, almost : septic shock.exclusively due to:severe bacterial :sepsis or septic :shock. : CMP: (MICHELLE: 09/02/2016 21:00) ( MsgRcvd 09/02/2016 21:37) Final results Test Result Flag Units (Reference) GLUCOSE 99 mg/dL (70-110) BUN 44 H mg/dL (7-18) CREATININE 2.4 H mg/dL (0.6-1.3) Estimated GFR 20.20 mL/min Estimated GFR- 24.49 mL/min Note: Persistent reduction over 3 months in eGFR<60 mL/min/1.73 m2 defines CKD. Patients with eGFR values>=60 mL/min/1.73 m2 may also have CKD if evidence ofpersistent proteinuria. Additional information may be foundat www.kidney.org. SODIUM 128 L mmol/L (136-145) POTASSIUM 6.2 H mmol/L (3.5-5.1) CHLORIDE 98 mmol/L (98-107) CARBON DIOXIDE 16 L mmol/L (21-32) CALCIUM 8.2 L mg/dL (8.5-10.1) TOTAL PROTEIN 7.9 g/dL (6.4-8.2) ALBUMIN 2.8 L g/dL (3.3-5.0) BILIRUBIN, TOTAL 0.4 mg/dL (0.0-1.0) ALKALINE PHOSPHATASE 109 U/L (46-116) AST (SGOT) 25 U/L (15-37) ALT (SGPT) 23 U/L (12-78) Rapid Influenza Screen: (MICHELLE: 09/02/2016 21:00) ( MsgRcvd 09/02/2016 21:28) Final results SPECIMEN DESCRIPTION: NARE Test Result Flag Units (Reference) RAPID INFLUENZA SCREEN DATE: 09/02/16 INFLUENZA A: NEGATIVE SCREEN FOR INFLUENZA A INFLUENZA B: NEGATIVE SCREEN FOR INFLUENZA B . PROGRESS AND PROCEDURES Course of Care: 20:36 09/02/16. old er record from 07/28 reviewed bun 38 creat 2.1 rx cipro and urine cx showed sensitivity to it 2215. Dr Cohen here. Discussed case with patient's primary care provider, (21:[address] Cohen). Reviewed test results. Agreed upon treatment plan and decision to admit. Health care provider will see patient in ED. Differential Diagnosis: Other possible considerations: uti, pyelo, urosepsis, flu, viral illness, pneumonia. Above considerations are based on history, physical exam, laboratory data and X-Ray data. Differential diagnosis was discussed with patient. Disposition: Admitted to Acute Care. 21:49. CLINICAL IMPRESSION Fever. Chronic urinary tract infection with cystitis. No pyelonephritis or hematuria. Not associated with indwelling catheter or obstruction. Hyperkalemia. Mild hypocalcemia. Moderate hyponatremia. (Electronically signed by Radhika Almazan A.R.NKaitlyn 09/04/2016 13:18)
--- NOTE | 2016-09-02 22:18 | ED NURSING NOTES ---
Clinical Report - Nurses [facility] [address] [place] [address] 09/02/2016 19:43 Patient: OLIVIA GASTON TRIAGE Triage time 2000 PM. Acuity: LEVEL 3. Chief Complaint: FEVER and CHILLS (UTI/SOB). Alert. No acute distress. SEPSIS SCREEN: Sepsis Screen. Negative (no infection suspected/documented). --20:13 Deborah Carrion R.N. 20:08 09/02/16. BP: 155/73. HR: 59. RR: 22. O2 saturation: 100%. O2 started via Venti mask at 11 liters/minute. Temp: 100.2 F. Pain level now: 0/10. --20:13 Deborah Carrion R.N. Weight: 61.2 kg stated. Height/Length: 64 inches Per Patient. BMI: 23.2. --20:10 Deborah Carrion R.N. Medications Acetaminophen Oral (Tablet 325 mg) 2 tablets, 4x a day as needed (Pain). Aspirin Oral (Tablet 81 mg) 1 tablet, daily. Atorvastatin Calcium Oral (Tablet 10 mg) 1/2 tablet, 2x a day. Benzonatate Oral (Capsule 100 mg) 1 capsule, 3x a day. Docusate Calcium Oral 100 mg, twice daily. Ferrous Sulfate Oral (Tablet 325 (65 Fe) mg) 1 tablet, daily. Levobunolol HCl Ophthalmic (Solution 0.5 %) 1 drop (R eye). Lisinopril Oral (Tablet 20 mg) 1 tablet, daily. Lumigan Ophthalmic (Solution 0.01 %) 1 drop (R eye). Metoprolol Tartrate Oral (Tablet 50 mg) 1 tablet, daily. --20:12 Deborah Carrion R.N. ProAir HFA Inhalation 2 puffs, daily. Refresh Ophthalmic 2 drops, every 4 hours as needed. Senna Oral (Tablet 8.6 mg) 2 tablets, daily as needed. Tramadol HCL Oral (Tablet 50 mg) 1 tablet, daily. --20:12 Carrion, Deborah, R.N. Allergies Codeine. Fentanyl. --20:12 Deborah Carrion R.N. Medication/allergy information source: the patient and patient's imported external medical record. --20:13 Deborah Carrion R.N. History Historian: patient. Primary physician (Dr. cohen). ( Pt states has had a UTI since June unable to shake it off, has been on antibiotics. Today pt states started to shake since this morning with trouble breathing. Brought here by EMS). This started today. She has had fever, a cough and difficulty breathing. Reports muscle aches. No weakness or skin rash. Treatment CONVERSION DEVELOPER: None. See EMS report. PAST MEDICAL HX: Immunizations: up-to-date. SOCIAL HX: Never smoker. No alcohol use or drug use. No infectious disease exposure. ABUSE ASSESSMENT: No report of abuse. SELF HARM ASSESSMENT: A self harm assessment was performed. The patient answered "no" to the question "Do you have thoughts of harming or killing yourself?" and "Have you recently had thoughts about harming or killing others?". FALL RISK ASSESSMENT: Fall risk assessment completed. No fall risk identified. NUTRITIONAL RISK ASSESSMENT: The nutritional risk assessment revealed no deficiencies. FUNCTIONAL ASSESSMENT: Functional assessment: no impairments noted. LEARNING NEEDS ASSESSMENT: The learning needs assessment revealed no barriers. SKIN INTEGRITY ASSESSMENT: Skin integrity risk assessment completed. No skin integrity risk identified. --20:13 Deborah Carrion R.N. PROBLEMS: Diarrhea. Renal Insufficiency. Dehydration. Cystitis. Pelvic Fracture. Oral Anticoagulation Therapy. Glaucoma. Hypertension. Pacemaker. Hyponatremia. Pressure Ulcer. Spinal Fracture. Anemia. Back Pain. Abrasion(s). Contusion. Tetanus Status. Abdominal Pain. Sjogren's syndrome. Arthritis. Vertigo. Abnormal Test. LNMP - Last Normal Menstrual Period. Fall. Pneumonia. Immunizations. Incontinence. Neuropathy. URI. Glaucoma in right eye. TIA - Transient Ischemic Attack. UTI - Urinary Tract Infection. Bradycardia. --20:12 Deborah Carrion R.N. ADDITIONAL SURGERIES: Appendectomy. Cataract Surgery. Hysterectomy. Pacemaker. Tonsillectomy. --20:12 Deborah Carrion R.N. Interventions ID band on patient. --20:13 Carrion, Deborah, R.N. PHYSICAL ASSESSMENT To room via stretcher. GENERAL / NEURO / PSYCH: Alert. Oriented X 4. Appears in distress. HEENT: Pupils equal, round and reactive to light. No facial asymmetry noted. ( dry mem). Mucous membranes are not pink. RESPIRATORY: Respirations not labored. CVS: Normal sinus rhythm noted. Pulses within normal limits. GI / : Abdomen soft and nontender and normal bowel sounds. SKIN: Skin is warm and dry. --20:14 Deborah Carrion R.N. NURSING PROGRESS NOTES Cardiac rhythm: normal sinus rhythm; atrial pacing. The initial plan of care for this patient has been created This plan of care was discussed with the patient. Oxygen administered by venturi mask at 11 liters. lunchroom monitor, pulse oximeter and NIBP monitor placed on patient. Reassurance given. Two patient identifiers checked. Call light placed in reach. Side rails up x 2. Bed placed in lowest position. Brakes of bed on. --20:15 Deborah Carrion R.N. 20:14 09/02/16. BP: 176/82. HR: 71. RR: 19. O2 saturation: 99%. Pain level now: 0. --20:15 Deborah Carrion R.N. Patient gowned and gowned. Warming measures: blanket applied. --20:15 Deborah Carrion R.N. 21:01 09/02/2016 Site #1 started via IV in the left forearm with an 20g angiocath; one attempt. Blood drawn: rainbow set. Labeled in the presence of the patient and sent to the lab. --21:01 Deborah Carrion R.N. 21:25 09/02/16. BP: 167/55. HR: 75. RR: 20. O2 saturation: 100%. O2 started via Venti mask at 10 liters/minute. Temp: 100.2 F (oral). Pain level now: 08/23. --21:27 Deborah Carrion R.N. Oxygen decreased to 10 liters by venturi mask. Monitoring of patient in place. Reassurance given. 14 fr in/out catheterization. During procedure hand hygiene observed and sterile equipment and aseptic technique used. Return of 300 mL jose-colored urine, sediment noted; odor is foul-smelling. She tolerated procedure well. Reassessment after oxygen administered. She is calm and resting quietly. ( Pt noted to have a fungal rash all over her vagina up to her buttock, pt states has been there for a while.). GENERAL / NEURO / PSYCH: Denies headache. RESPIRATORY: Denies difficulty breathing. CVS: Denies chest pain. GI / : Denies nausea. Two patient identifiers checked. Call light placed in reach. Side rails up x 2. Bed placed in lowest position. Brakes of bed on. --21:27 Deborah Carrion R.N. EKG time: (2151). EKG was performed by tyrone muse and shown to the PA. --21:56 Brandy Enriquez ER Tech1 22:30 09/02/2016 Site #2 started via IV in the right forearm with an 18g angiocath; one attempt. Saline lock flushed with 10 mL saline. --22:30 Deborah Carrion R.N. 22:30 09/02/2016 Calcium Gluconate IVP 1 gm given over 1 hour(s) via site #2. Allergies verified and confirmed 5 rights. IV patency established. IV site checked: no pain, redness, or swelling. IV flushed thoroughly pre- and post-medication administration. IVP given by RN. --22:30 Deborah Carrion R.N. 22:32 09/02/2016 Started bag #1 1000 mL IV Fluids IV NS (Saline); at 1000 mL/hr over 1 hour(s) via site #1 via IV pump. Allergies verified and confirmed 5 rights. IV patency established. IV site checked: no pain, redness, or swelling. IV flushed thoroughly pre- and post-medication administration. --22:32 Deborah Carrion R.N. 22:00 09/02/16. BP: 147/39 (regular adult cuff) taken on the left arm, via an automated monitor, while sitting. HR: 59. RR: 18. O2 saturation: 97%. O2 started via Venti mask at 5 liters/minute. Temp: 100.2 F (oral). Pain level now: 0/10. --22:35 Deborah Carrion R.N. 22:00 PM. Cardiac rhythm: sinus bradycardia; atrial pacing. lunchroom monitor, pulse oximeter and NIBP monitor placed on patient. Patient ID band checked for patient name, birthdate and medical record number: patient confirmed. Blood samples drawn from the left antecubital space with Vacutainer by lab per protocol ; labeled in presence of the patient and sent to lab: blood culture (1st set). Reassurance given. Two patient identifiers checked. Call light placed in reach. Side rails up x 2. Bed placed in lowest position. Brakes of bed on. --22:35 Deborah Carrion R.N. Patient transported to ID. --22:35 Deborah Carrion R.N. Cardiac rhythm: normal sinus rhythm; no ectopy noted PVCs. Oxygen decreased to 4 liters by nasal cannula. Monitoring of patient in place. Reassurance given. Reassessment after oxygen and fluids administered and medication administered. She is calm and resting quietly and has had no adverse reaction. Overall patient status is the same- she states feels the same. GENERAL / NEURO / PSYCH: Denies headache or anxiety. CVS: Normal sinus rhythm noted. Cardiac rhythm: sinus bradycardia; atrial pacing; occasional PVCs. GI / : Denies nausea. Two patient identifiers checked. Call light placed in reach. Side rails up x 2. Bed placed in lowest position. Brakes of bed on. --23:30 Deborah Carrion R.N. 23:15 09/02/16. BP: 171/102. HR: 66. RR: 24. O2 saturation: 94%. O2 started via nasal cannula at 4 liters/minute. Pain level now: 0/10. --23:30 Deborah Carrion R.N. 22:45 09/02/2016 Calcium Gluconate IVP Response: no adverse reaction. --23:33 Deborah Carrion R.N. 23:19 09/02/2016 Sodium Bicarbonate IVP 50 meq given over 5 minute(s) via site #1. Allergies verified and confirmed 5 rights. IV patency established. IV site checked: no pain, redness, or swelling. IV flushed thoroughly pre- and post-medication administration. IVP given by RN. --23:20 Deborah Carrion R.N. 23:22 09/02/2016 Insulin REG IVP 10 unit given over 2 minute(s) via site #1. Allergies verified and confirmed 5 rights. IV patency established. IV site checked: no pain, redness, or swelling. IV flushed thoroughly pre- and post-medication administration. IVP given by RN. --23:22 Deborah Carrion R.N. 23:28 09/02/2016 D-50 IVP 1 Amp given over 5 minute(s) via site #1. --23:28 Deborah Carrion R.N. <<STRICKEN ENTRY-- 23:33 09/02/2016 Calcium Gluconate IVP Response: no adverse reaction. --23:33 Deborah Carrion R.N. --END STRIKE>> Other. --23:33 Deborah Carrion R.N. 23:33 09/02/2016 Sodium Bicarbonate IVP Response: no adverse reaction. --23:33 Deborah Carrion R.N. 23:50 09/02/2016 Kayexalate (Sodium Polystyrene Sulfonate) PO Oral Suspension 30 gm given. Allergies verified and confirmed 5 rights. --23:50 Deborah Carrion R.N. pt repositioned in bed. --00:11 India Whitt R.N. 00:11 09/03/2016 IV Fluids IV NS Response: no adverse reaction. --00:21 Deborah Carrion R.N. 00:12 09/03/2016 IV Fluids IV NS Discontinued: bag #1 completed. Total amount infused: 1000 mL. IV patency established. IV site checked: no pain, redness, or swelling. IV flushed thoroughly. --00:12 India Whitt RPrateek DISPOSITION / DISCHARGE 00:20 09/03/2016 Site #2 reassessed; patent and infusing well. Good blood return present. Converted to saline lock. Flushed with 10 mL saline. --00:20 Deborah Carrion R.N. 00:20 09/03/2016 Site #1 reassessed; patent and infusing well. Converted to saline lock. Flushed with 10 mL saline. --00:20 Deborah Carrion R.N. Cardiac rhythm: sinus bradycardia; atrial pacing. Departure time: 0022 AM. Condition at departure: improved and stable. The goals identified in the patient's plan of care were met. Transported via stretcher by transport team with O2. Report was given to a nurse via a phone call. Report included patient's care, treatment, medications, reviewed medication reconcilliation, and condition (including any recent changes or anticipated changes). All questions were answered. Report was acknowledged and care was transferred. ( Pt "feeling horrible" transported to unit safely, IV sites intact, tolerated meds well). FALL RISK ASSESSMENT: Fall risk assessment completed. No fall risk identified. --00:21 Deborah Carrion R.N. 00:19 09/03/16. BP: 145/95 (small adult cuff) taken on the left arm, via an automated monitor, while lying. HR: 59 (bradycardic). RR: 18. O2 saturation: 94%. O2 started via nasal cannula at 4 liters/minute. Temp: 99.8 F (oral). Pain level now: 0/10. --00:21 Deborah Carrion R.N. Locked/Released at 09/03/2016 0:22 by Deborah Carrion R.N.
--- NOTE | 2016-09-02 22:18 | ED ORDER SUMMARY ---
..... Patient: OLIVIA GASTON OrderSheet [facility] VisitID: [id number] [address] [place] [address] 89y, F Registration Date/Time: 09/02/2016 ORDER SHEET Weight: 61.2 kg (stated) Allergies: Codeine, Fentanyl GENERAL ORDERS: Rapid Influenza Screen (Nasal Pharyngeal) (nare) Urgent (20:31 09/02/2016 HBivens A.R.N.P.) (Ack 20:34 LMuller) (21:01 EHassan R.N.) Chest 2V Urgent (20:09/02/2016 HBivens A.R.N.P.) (Ack 20:34 LMuller) (20:59 MCampbell) CBC w Diff Urgent (20:09/02/2016 HBivens A.R.N.P.) (Ack 20:34 LMuller) (21:01 EHassan R.N.) CMP Urgent (20:09/02/2016 HBivens A.R.N.P.) (Ack 20:34 LMuller) (21:01 EHassan R.N.) UA-Culture if indicated Urgent (20:31 09/02/2016 HBivens A.R.N.P.) (Ack 20:34 LMuller) (21:01 EHassan R.N.) Lactate, Serum Urgent (20:09/02/2016 HBivens A.R.N.P.) (Ack 20:34 LMuller) (21:01 EHassan R.N.) PCT (Procalcitonin) Urgent (20:31 09/02/2016 HBivens A.R.N.P.) (Ack 20:34 LMuller) (21:01 EHassan R.N.) EKG - ER Stat (21:42 09/02/2016 HBivens A.R.N.P.) (Ack 21:44 LMuller) (21:46 LMuller) Blood Culture (Yes) (cipro) Urgent (21:52 09/02/2016 HBivens A.R.N.P.) (Ack 22:26 LMuller) (22:29 EHassan R.N.) CT Abd/Pel wo Cont Urgent (22:20 09/02/2016 HBivens A.R.N.P.) (Ack 22:26 [facility]) (23:13 EHassan R.N.) (23:14 [facility]) MEDICATION ORDERS: Kayexalate PO 30 gm/120mL (NOW) (21:54 09/02/2016 HBivens A.R.N.P.) (23:50 EHassan R.N.) IV FLUIDS: IV Saline Lock (20:31 09/02/2016 HBivens A.R.N.P.) (21:01 EHassan R.N.) Sodium Bicarbonate IV 50 meq (NOW) (21:53 09/02/2016 HBivens A.R.N.P.) (23:20 EHassan R.N.) Calcium Gluconate IV 1 gm/100mL (HIGH ALERT MEDICATION, NOW) (21:53 09/02/2016 HBivens A.R.N.P.) (22:30 EHassan R.N.) Insulin Reg IV 10 units (HIGH ALERT MEDICATION, NOW) (21:53 09/02/2016 HBivens A.R.N.P.) (23:22 EHassan R.N.) D-50 IV 1 amp (HIGH ALERT MEDICATION, NOW, IVP) (21:54 09/02/2016 HBivens A.R.N.P.) (23:28 EHassan R.N.) IV NS : initial bolus 1000 mL (1000 mL/hr), then none - for X2 (NOW) (21:55 09/02/2016 HBivens A.R.N.P.) (22:32 EHassan R.N.) ORDER SHEET NOTES: [Electronically signed by Deborah Carrion R.N. (00:22 09/03/2016)] [Electronically signed by Radhika Almazan.R.N.P. (13:18 09/04/2016)] [Electronically locked/signed by Deborah Carrion R.N. (00:22 09/03/2016)]
--- NOTE | 2016-09-02 22:18 | ED ORDER SUMMARY ---
..... Patient: OLIVIA GASTON OrderSheet [facility] VisitID: [id number] [address] [place] [address] 89y, F Registration Date/Time: 09/02/2016 ORDER SHEET Weight: 61.2 kg (stated) Allergies: Codeine, Fentanyl GENERAL ORDERS: Rapid Influenza Screen (Nasal Pharyngeal) (nare) Urgent (20:31 09/02/2016 HBivens A.R.N.P.) (Ack 20:34 LMuller) (21:01 EHassan R.N.) Chest 2V Urgent (20:09/02/2016 HBivens A.R.N.P.) (Ack 20:34 LMuller) (20:59 MCampbell) CBC w Diff Urgent (20:09/02/2016 HBivens A.R.N.P.) (Ack 20:34 LMuller) (21:01 EHassan R.N.) CMP Urgent (20:09/02/2016 HBivens A.R.N.P.) (Ack 20:34 LMuller) (21:01 EHassan R.N.) UA-Culture if indicated Urgent (20:31 09/02/2016 HBivens A.R.N.P.) (Ack 20:34 LMuller) (21:01 EHassan R.N.) Lactate, Serum Urgent (20:09/02/2016 HBivens A.R.N.P.) (Ack 20:34 LMuller) (21:01 EHassan R.N.) PCT (Procalcitonin) Urgent (20:31 09/02/2016 HBivens A.R.N.P.) (Ack 20:34 LMuller) (21:01 EHassan R.N.) EKG - ER Stat (21:42 09/02/2016 HBivens A.R.N.P.) (Ack 21:44 LMuller) (21:46 LMuller) Blood Culture (Yes) (cipro) Urgent (21:52 09/02/2016 HBivens A.R.N.P.) (Ack 22:26 LMuller) (22:29 EHassan R.N.) CT Abd/Pel wo Cont Urgent (22:20 09/02/2016 HBivens A.R.N.P.) (Ack 22:26 [facility]) (23:13 EHassan R.N.) (23:14 [facility]) MEDICATION ORDERS: Kayexalate PO 30 gm/120mL (NOW) (21:54 09/02/2016 HBivens A.R.N.P.) (23:50 EHassan R.N.) IV FLUIDS: IV Saline Lock (20:31 09/02/2016 HBivens A.R.N.P.) (21:01 EHassan R.N.) Sodium Bicarbonate IV 50 meq (NOW) (21:53 09/02/2016 HBivens A.R.N.P.) (23:20 EHassan R.N.) Calcium Gluconate IV 1 gm/100mL (HIGH ALERT MEDICATION, NOW) (21:53 09/02/2016 HBivens A.R.N.P.) (22:30 EHassan R.N.) Insulin Reg IV 10 units (HIGH ALERT MEDICATION, NOW) (21:53 09/02/2016 HBivens A.R.N.P.) (23:22 EHassan R.N.) D-50 IV 1 amp (HIGH ALERT MEDICATION, NOW, IVP) (21:54 09/02/2016 HBivens A.R.N.P.) (23:28 EHassan R.N.) IV NS : initial bolus 1000 mL (1000 mL/hr), then none - for X2 (NOW) (21:55 09/02/2016 HBivens A.R.N.P.) (22:32 EHassan R.N.) ORDER SHEET NOTES: [Electronically signed by Deborah Carrion R.N. (00:22 09/03/2016)] [Electronically signed by Radhika Almazan.R.N.P. (13:18 09/04/2016)] [Electronically locked/signed by Deborah Carrion R.N. (00:22 09/03/2016)]
--- NOTE | 2016-09-02 22:41 | Progress Note ---
Subjective General 89 y.o female with dehydration who presents with fevers and abnl electrolytes and UTI(. Plan: treat with abx and check on CT abdomen non contrast.
--- NOTE | 2016-09-02 22:43 | DIAGNOSTIC IMAGING REPORT ---
PROCEDURE: XR CHEST 2 VIEW INDICATION: FEVER TECHNIQUE: Two views. COMPARISON: 10/28/2014 FINDINGS: Left-sided dual lead transvenous pacemaker, stable. Mild cardiomegaly, stable. Ectatic thoracic aorta without change. No central venous congestion. Diffuse coarsening of the interstitial markings. No focal consolidation, effusion, or pneumothorax. Demineralized osseous structures with deformity of healing, chronic left rib fractures. IMPRESSION: 1. No acute process. 2. Stable cardiomediastinal contour with pacemaker.
--- NOTE | 2016-09-02 23:33 | HISTORY AND PHYSICAL ---
ADMITTED: 09/02/2016 CHIEF COMPLAINT: 1. Fever 2. Not feeling well 3. Recurrent urinary tract infection 4. Sore on buttocks HISTORY OF PRESENT ILLNESS: The patient is an 89-year-old female who states that she does not think she is going to make it this time. She has been in-and-out of the clinic and/or assisted living for urinary tract infection. She has been treated multiple times , recently on 08/21/2016, treated for a urinary tract infection, had recurrent symptoms on 08/28/2016, which showed another urinary tract infection, treated with Cipro, which she had 2 cultures come back, one was Pseudomonas that was susceptible to Cipro and another was Klebsiella, also susceptible to Cipro. She presents with a fever to 101, in her facility she was 102. She also feels dehydrated and has multiple laboratory abnormalities including elevated potassium, elevated BUN and creatinine. She also states that she has got some chronic lower abdominal discomfort. MEDICAL/SURGICAL HISTORY: Past medical history: She has had skin lesions, skin tears, weakness, hip pain, Sicca syndrome and atrial fibrillation. Past surgical history: She has had an appendectomy, total hysterectomy and tonsillectomy, as well as a pacemaker. MEDICATIONS: 1. Sertraline 10 mg p.o. daily. 2. Abdullah butt cream, apply twice a day x2 weeks. 3. Cipro 500 mg p.o. b.i.d. x7 days, which was started on 08/27/2016. 4. MiraLAX 17 g p.o. daily. 5. Triamcinolone 08/20/2016, apply to rash 2 times a day for 2 weeks. 6. Acetaminophen 2 by mouth every 4 hours as needed p.r.n. pain. 7. Aspirin 81 mg p.o. daily. 8. Tramadol 50 mg p.o. q.8 hours as needed for mild pain, not to exceed 8 per day. 9. Senna 2 by mouth daily. 10. Lipitor 10 mg half tablet p.o. daily. 11. Iron 325 mg p.o. b.i.d. 12. Lisinopril 20 mg p.o. daily. 13. Betagan 1 drop b.i.d. 14. Lumigan 0.1% solution 1 drop right eye at bedtime. 15. Metoprolol succinate 25 mg p.o. daily. 16. ProAir 2 puffs q.4 hours p.r.n. 17. Refresh Optive 2 drops each eye every hour as needed. ALLERGIES: 1. NONE KNOWN. 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 Denies any drug use, alcohol use and she quit smoking around 25 years ago. FAMILY HISTORY: Remarkable for lung cancer in father who . Mother of pneumonia. She had a sister with alcoholism and son who had cancer. REVIEW OF SYSTEMS: She states she had some abdominal discomfort that is kind of mild and chronic, left lower abdominal region, more than right. She has had a little bit of a cough. She has had this chronic urinary tract infection and buttocks sore with redness. She denies chest pain. She denies shortness of breath. She has had a fever. PHYSICAL EXAMINATION: GENERAL: She is an alert female who appears to be in no acute distress. She is talkative, in full sentences and alert and oriented x3. VITAL SIGNS: Her blood pressure is 155/73, heart rate of 59, respirations 22, saturating 100% on O2. She has got a temperature of 100.2 in the emergency department. HEENT: Extraocular movements intact. Pupils equal, round, reactive to light. She is wearing glasses. Oropharynx is clear with kind of tacky mucous membranes. NECK: Supple without lymphadenopathy. LUNGS: Clear to auscultation bilaterally. HEART: Regular rate and rhythm. ABDOMEN: Soft. It is tender to palpation in the left lower abdomen. Her left- sided CVA region has some percussion tenderness, greater than the right. GENITOURINARY: Deferred. RECTAL: Deferred. SKIN: However, she does have a buttocks sore, which is mostly erythema over her buttock region. NEUROLOGIC: Strength and sensation appears grossly intact. LAB/IMAGING: EKG: Shows a widened QRS with nonspecific ST changes and bradycardia, no acute process noted there. Laboratories: CBC: White count of 11.4, hematocrit of 31.2, and platelets of 339 ,000. Comprehensive metabolic panel: Glucose 99, BUN of 44, creatinine 2.4, sodium 128 , potassium 6.2, chloride of 98, HCO3 16, calcium 8.2, total protein 7.9. Albumin 2.8, bili is 0.4, alk phos 109, AST 25, ALT 23. Procalcitonin less than 0.5. Lactic acid 1.3. Influenza screens were negative. Urinalysis shows positive a nitrite, positive leuk esterase, 2+ blood and a few bacteria. IMPRESSION/PLAN: 1. This is an 89-year-old female who presents to the emergency department with fever and urinary tract infection symptoms. She has had recurrent urinary tract infections including urinalysis that is elevated. She recently had a pseudomonal infection. She is still on Cipro for treating that. In spite of that, she is worsening with her symptoms. I wonder if she could have something further going on with her slightly elevated white count and her fever. We will check on a CT of her abdomen, rule out diverticulitis as she is tender in the left lower abdomen. She also has some left costovertebral angle tenderness, rule out kidney stones. If she has a stone she may need further evaluation and treatment and then institution with urology. She confirms that she is DO NOT RESUSCITATE/DO NOT INTUBATE and as she has multiple electrolyte abnormalities, including elevated BUN and creatinine consistent with dehydration, as well as some mild anemia, I anticipate it will take at least a couple days to get her electrolytes back into the acceptable range and we will admit her as an inpatient at this time.
--- NOTE | 2016-09-02 23:42 | DIAGNOSTIC IMAGING REPORT ---
PROCEDURE: CT ABDOMEN/PELVIS W/O CONTRAST INDICATION: FEVER TECHNIQUE: Axial CT images were obtained through the abdomen and pelvis without IV contrast. Coronal and sagittal reformations were created. COMPARISON: 12/22/2013 FINDINGS: Cardiomegaly with pacemaker leads partially imaged. Minimal bibasilar atelectatic changes. Very small hiatal hernia. Coronary atherosclerosis. Two stable hepatic cysts. Small intrahepatic right lobe calcification, probably biliary. Moderate to heavy calcific atherosclerosis. Chronic bilateral severe hydronephrosis. A large exophytic right lower pole renal cyst. Severe bilateral chronic hydroureter, stable. There are at least three nonobstructing intrarenal calcifications in the right collecting system, the largest is a linear calcification in the lower pole measuring approximately 10 mm. Adrenal glands, pancreas, spleen, stomach, and upper bowel loops are within normal limits. Mildly increased retained stool. The urinary bladder demonstrates mild irregular margin and slightly irregular thickening along the superior portion of the bladder. No bladder calcifications. Interval resolution of bladder wall emphysema. The uterus is surgically absent. No urethral calcifications visible. Healing right inferior pubic ramus fracture. Distal bowel loops are within normal limits. No free pelvic fluid. IMPRESSION: 1. Compared to the prior CT scan, there are multiple new nonobstructing right intrarenal calculi, likely indicative of chronic urinary stasis. No new obstructing calculus. 2. Chronic bilateral severe hydronephrosis and hydroureter. 3. Chronic, irregular urinary bladder wall contour and thickness, however an acute on chronic infectious process in the urinary system is not excluded. 4. Otherwise stable study. 5. Findings called to the emergency room. All CT scans at this facility use dose modulation, iterative reconstruction, and/or weight-based dosing when appropriate to reduce radiation dose to as low as reasonably achievable.
[2016-09-03 01:51] VITALS: BP 145/44
[2016-09-03 07:12] VITALS: BP 121/40
[2016-09-03] MEDS ORDERED: NON-ASPIRIN325 MG (07:38)
[2016-09-03] MEDS ORDERED: ASPIRIN ADULT L81 MG PO (07:38)
[2016-09-03] MEDS ORDERED: BENZONATATE100 MG PO (07:39)
[2016-09-03] MEDS ORDERED: ATORVASTATIN CA10 MG PO (07:39)
[2016-09-03] MEDS ORDERED: LOPRESSOR50 MG PO (07:40)
[2016-09-03] MEDS ORDERED: FERROUS SULFAT324 M1 (07:40)
[2016-09-03] MEDS ORDERED: DOCUSATE SODIU100 MG PO (07:40)
[2016-09-03] MEDS ORDERED: LISINOPRIL10 MG PO (07:40)
[2016-09-03] MEDS ORDERED: TRAMADOL HCL50 MG PO (07:41)
--- NOTE | 2016-09-03 07:51 | Progress Note ---
Subjective General Patient states that she is pretty miserable, has been feeling like she can't get in a good position in bed. Has liq stool and now has a rectal tube in. Has CT with possible retention issues. Has excoriated bottom. I have placed a rectal tube, manjarrez that may help her skin but also drain her urine better. She states that she would be up for "whatever" for treatment as we discussed possible treatment options including urology eval of stones. Physical Exam Vital Signs / I&Os Vital Signs Date Time Temp Pulse Resp B/P Pulse O2 O2 Flow FiO2 Ox Delivery Rate 09/03 0712 99.1 62 18 121/40 100 Nasal 2.0 Cannula 09/03 0421 2.0 09/03 0151 98.1 81 18 145/44 100 Nasal 4.0 Cannula 09/03 0139 4.0 General Appearance Alert, Cooperative HEENT EOMI, SCLERA CLEAR Lungs Normal air movement Cardiovascular Regular rate and rhythm Abdomen Soft, minimally tender to palpation non focal Extremities No edema, some superficial abrasions on the legs. LAB Results Laboratory Tests 09/03 09/02 09/02 09/02 0525 2120 2100 2100 Chemistry Plasma Sodium (136 - 145 mmol/L) 132 Plasma Potassium (3.5 - 5.1 mmol/L) 5.8 Plasma Chloride (98 - 107 mmol/L) 101 CO2 (Enzymatic) (21 - 32 mmol/L) 19 BUN (7 - 18 mg/dL) 39 Creatinine (0.6 - 1.3 mg/dL) 2.2 Est GFR ( Amer) (mL/min) 27.07 Est GFR (Non-Af Amer) (mL/min) 22.34 Glucose (70 - 110 mg/dL) 91 Lactic Acid (0.4 - 2.0 mmol/L) 1.3 Plasma Calcium (8.5 - 10.1 mg/dL) 7.9 Procalcitonin (0 - 0.5 ng/mL) <0.5 Urines Urine Color YELLOW Urine Appearance CLEAR Urine pH (5.0 - 8.0) 6.0 Ur Specific [place] (1.010 - 1.030) 1.010 Urine Protein (NEGATIVE) 1+ Urine Ketones (NEGATIVE) NEGATIVE Urine Blood (NEGATIVE) 2+ Urine Nitrite (NEGATIVE) POSITIVE Urine Bilirubin (NEGATIVE) NEGATIVE Urine Urobilinogen (0.2 - 1.0 EU/dL) 0.2 Ur Leukocyte Esterase (NEGATIVE) POSITIVE Urine RBC (0 - 1 rbc/hpf) NONE SEEN Urine WBC (0 - 1 wbc/hpf) TNTC Ur Epithelial Cells (0 - 5 EPI/hpf) NONE SEEN Urine Bacteria (NONE SEEN) FEW (1+) Urine Glucose (NEGATIVE) NEGATIVE Urine Comment CULTURE INDICATED 09/02 2100 Chemistry Plasma Sodium (136 - 145 mmol/L) 128 Plasma Potassium (3.5 - 5.1 mmol/L) 6.2 Plasma Chloride (98 - 107 mmol/L) 98 CO2 (Enzymatic) (21 - 32 mmol/L) 16 BUN (7 - 18 mg/dL) 44 Creatinine (0.6 - 1.3 mg/dL) 2.4 Est GFR ( Amer) (mL/min) 24.49 Est GFR (Non-Af Amer) (mL/min) 20.20 Glucose (70 - 110 mg/dL) 99 Plasma Calcium (8.5 - 10.1 mg/dL) 8.2 Total Bilirubin (0.0 - 1.0 mg/dL) 0.4 AST (15 - 37 U/L) 25 ALT (12 - 78 U/L) 23 Alkaline Phosphatase (46 - 116 U/L) 109 Total Protein (6.4 - 8.2 g/dL) 7.9 Albumin (3.3 - 5.0 g/dL) 2.8 Hematology WBC (4.5 - 11.5 K/uL) 11.4 RBC (4.00 - 5.20 M/uL) 3.59 Hgb (12.0 - 16.0 gm/dL) 10.1 Hct (36.0 - 46.0 %) 31.2 MCV (80 - 100 fL) 87 MCH (26 - 34 pg) 28 RDW (11.6 - 14.8 %) 15.2 Neut % (Auto) (50 - 75 %) 75.5 Lymph % (Auto) (25 - 40 %) 12.0 [place] % (Auto) (3 - 14 %) 9.7 Eos % (Auto) (0 - 4 %) 1.7 Baso % (Auto) (0 - 2 %) 1.1 Plt Count, EDTA (150 - 400 K/uL) 339 PUBS MCHC (31 - 37 g/dL) 32 Microbiology Date/Time Procedure - Status Source Growth 02/20 2225 Blood Culture - RECD BLOOD 09/02 2209 Blood Culture - RECD BLOOD 09/02 2119 Urine Culture - RECD URINE CATH 09/02 2100 Influenza Screen - COMP NASALPHAR Imaging CT abdomen: IMPRESSION: 1. Compared to the prior CT scan, there are multiple new nonobstructing right intrarenal calculi, likely indicative of chronic urinary stasis. No new obstructing calculus. 2. Chronic bilateral severe hydronephrosis and hydroureter. 3. Chronic, irregular urinary bladder wall contour and thickness, however an acute on chronic infectious process in the urinary system is not excluded. 4. Otherwise stable study. . Assessment and Plan Problem List 1. UTI (lower urinary tract infection) Plan Has recurrent UTIs and stones and ? if retention and also infected stones. 2. Fever Plan Improved this am on levoquin. 3. Bladder retention Plan I have placed manjarrez cath. 4. Acute renal disease Plan She has been with robert IVF and will continue. 5. Dehydration Plan Improving at this time with the IVF 6. Hyperkalemia Plan Still hyper K but moving in the right direction. 7. Diarrhea Plan has a rectal tube and will send stool for cdiff and cx.
[2016-09-03 11:10] VITALS: BP 117/43
[2016-09-03 14:37] VITALS: BP 100/43
[2016-09-03 18:33] VITALS: BP 120/44
--- NOTE | 2016-09-03 18:38 | Progress Note ---
Subjective General Patient states she is feeling poorly still. I discussed her case with Dr. Hubbard who agrees with catheter at this time and then f/u with him when ready for d/c home. Has labs for am.
[2016-09-03 22:25] VITALS: BP 124/72
[2016-09-04 02:15] VITALS: BP 123/48
[2016-09-04 07:27] VITALS: BP 145/44
--- NOTE | 2016-09-04 07:39 | Progress Note ---
Subjective General Brief Hx: 89 y.o female with dehydration who presents with fevers and abnl electrolytes and UTI treated with abx; Ct abd with renal stones and signs of urinary retention. Blood cx pos last pm sens pending. This am she states she just isn't comfortable, has diffuse pain. No localized issues. It hurts when I get my arm squeezed or when they poke me with the needles. Physical Exam Vital Signs / I&Os Vital Signs Date Time Temp Pulse Resp B/P Pulse O2 O2 Flow FiO2 Ox Delivery Rate 09/04 0215 99.1 52 18 123/48 98 Room Air 09/03 2225 98.1 61 18 124/72 97 Room Air 09/03 1833 97.9 50 22 120/44 99 Room Air 09/03 1437 99.9 68 20 100/43 91 Room Air 09/03 1110 100.0 54 18 117/43 100 Nasal 2.0 Cannula 09/03 0911 2.0 I&O 09/04 0000 09/03 1600 09/03 0800 Intake Total 8857 546 0036 Output Total 650 950 600 Balance 520 -710 440 General Appearance Alert, Cooperative Lungs Clear to auscultation, Normal air movement Cardiovascular Regular rate and rhythm Abdomen Soft, minimally tender to palpation non focal Extremities No edema LAB Results Laboratory Tests 09/04 0525 Chemistry Plasma Sodium (136 - 145 mmol/L) 128 Plasma Potassium (3.5 - 5.1 mmol/L) 5.2 Plasma Chloride (98 - 107 mmol/L) 98 CO2 (Enzymatic) (21 - 32 mmol/L) 17 BUN (7 - 18 mg/dL) 31 Creatinine (0.6 - 1.3 mg/dL) 1.9 Est GFR ( Amer) (mL/min) 32.06 Est GFR (Non-Af Amer) (mL/min) 26.45 Glucose (70 - 110 mg/dL) 88 Plasma Calcium (8.5 - 10.1 mg/dL) 7.3 Plasma Magnesium (1.8 - 2.4 mg/dL) 1.5 Total Bilirubin (0.0 - 1.0 mg/dL) 0.4 AST (15 - 37 U/L) 27 ALT (12 - 78 U/L) 16 Alkaline Phosphatase (46 - 116 U/L) 79 Total Protein (6.4 - 8.2 g/dL) 5.5 Albumin (3.3 - 5.0 g/dL) 2.0 Hematology WBC (4.5 - 11.5 K/uL) 14.4 RBC (4.00 - 5.20 M/uL) 2.99 Hgb (12.0 - 16.0 gm/dL) 8.4 Hct (36.0 - 46.0 %) 26.0 MCV (80 - 100 fL) 87 MCH (26 - 34 pg) 28 RDW (11.6 - 14.8 %) 15.9 Neut % (Auto) (50 - 75 %) 77.4 Lymph % (Auto) (25 - 40 %) 10.8 [place] % (Auto) (3 - 14 %) 10.1 Eos % (Auto) (0 - 4 %) 0.5 Baso % (Auto) (0 - 2 %) 1.2 Plt Count, EDTA (150 - 400 K/uL) 263 PUBS MCHC (31 - 37 g/dL) 32 Microbiology Date/Time Procedure - Status Source Growth 09/03 1220 Clostridium difficile Toxin A & B - COMP STOOL 09/03 1220 Specimen Source - COMP STOOL 09/03 1220 Escherichia coli Shiga Toxins EIA - RECD STOOL 09/03 1220 Campylobacter Culture - RECD STOOL 09/03 1220 Salmonella/Shigella Culture - RECD STOOL Blood cx with pos but prelim as recorded value. Assessment and Plan Problem List 1. UTI (lower urinary tract infection) Plan Is improving overall it seems with blood cx pos and no sens we still don't know what we are treating. The vitals are doing ok some elevation in temps still may be related to ? pyelo. 2. Fever Plan Improved from initial admit but still spiking some. 3. Hyperkalemia Plan IMproving still. 4. Acute renal disease Plan Cr improving with IVF and manjarrez 5. Dehydration Plan Improving with IVF. Low MG and will replace today 6. Bladder retention Plan Manjarrez in place. 7. Diarrhea Plan Rectal tube with d/c still
[2016-09-04 11:23] VITALS: BP 117/47
--- NOTE | 2016-09-04 13:18 | ED MAR SUMMARY ---
..... Medication Administration Record [facility] [address] [place] [address] Patient: OLIVIA GASTON Visit ID: [id number] 89y, F Weight: 61.2 kg Height/Length: 64 in BMI: 23.2 ALLERGIES: Codeine, Fentanyl Given 22:30 09/02/2016 Deborah Carrion R.N. Medication Administered: CALCIUM GLUCONATE [IVP], Dose: 1 gm IVP over 1 hour(s), Site: #2 right forearm. Medication Ordered: Calcium Gluconate IV 1 gm/100mL (HIGH ALERT MEDICATION, NOW). Start 22:32 09/02/2016 Deborah Carrion R.N., Stop 00:12 09/03/2016 India Whitt R.N. Medication Administered: IV NS (SALINE), Dose: IV Fluids over 1 hour(s), Rate: 1000 mL/hr, Dispensed: 1000 mL bag, Site: #1 left forearm. Medication Ordered: IV NS : initial bolus 1000 mL (1000 mL/hr), then none - for X2 (NOW). Given 23:19 09/02/2016 Deborah Carrion R.N. Medication Administered: SODIUM BICARBONATE [IVP], Dose: 50 meq IVP over 5 minute(s), Site: #1 left forearm. Medication Ordered: Sodium Bicarbonate IV 50 meq (NOW). Given 23:22 09/02/2016 Deborah Carrion R.N. Medication Administered: INSULIN REG [IVP], Dose: 10 unit IVP over 2 minute(s), Site: #1 left forearm. Medication Ordered: Insulin Reg IV 10 units (HIGH ALERT MEDICATION, NOW). Given 23:28 09/02/2016 Deborah Carrion R.NSheree Medication Administered: D-50 [IVP], Dose: 1 Amp IVP over 5 minute(s), Site: #1 left forearm. Medication Ordered: D-50 IV 1 amp (HIGH ALERT MEDICATION, NOW, IVP). Given 23:50 09/02/2016 Deborah Carrion R.N. Medication Administered: KAYEXALATE [PO] (SODIUM POLYSTYRENE SULFONATE), Dose: 30 gm Oral Suspension PO. Medication Ordered: Kayexalate PO 30 gm/120mL (NOW).
--- NOTE | 2016-09-04 13:18 | ED DISCHARGE INSTRUCTIONS ---
Patient: OLIVIA GASTON General Instructions [facility] VisitID: [id number] [address] [place] [address] 89y, F Registration Date/Time: 09/02/2016 Fever. Chronic urinary tract infection with cystitis. No pyelonephritis or hematuria. Not associated with indwelling catheter or obstruction. Hyperkalemia. Mild hypocalcemia. Moderate hyponatremia. (Electronically signed by Radhika Almazan A.R.N.P. 09/04/2016 13:18)
--- NOTE | 2016-09-04 13:18 | ED MED RECONCILIATION SUMMARY ---
Patient: OLIVIA GASTON Medication Reconciliation Report [facility] VisitID: [id number] [address] [place] [address] 89y, F Registration Date/Time: 09/02/2016 Weight: 61.2 kg Height/Length: 64 in. BMI: 23.2 ALLERGIES: Codeine, Fentanyl The patient's Home Medications are listed below: THE FOLLOWING MEDICATIONS NEED TO BE RECONCILED: Acetaminophen Oral (325 mg) 2 tablets, 4x a day, Pain Aspirin Oral (81 mg) 1 tablet, daily Atorvastatin Calcium Oral (10 mg) 1/2 tablet, 2x a day Benzonatate Oral (100 mg) 1 capsule, 3x a day Docusate Calcium Oral 100 mg, twice daily Ferrous Sulfate Oral (325 (65 Fe) mg) 1 tablet, daily Levobunolol HCl Ophthalmic (0.5 %) 1 drop, R eye Lisinopril Oral (20 mg) 1 tablet, daily Lumigan Ophthalmic (0.01 %) 1 drop, R eye Metoprolol Tartrate Oral (50 mg) 1 tablet, daily ProAir HFA Inhalation 2 puffs, daily Refresh Ophthalmic 2 drops, every 4 hours Senna Oral (8.6 mg) 2 tablets, daily Tramadol HCL Oral (50 mg) 1 tablet, daily The source(s) of the original Home Medication information: patient patient's imported external medical record The following Medications were given to the patient in the Emergency Department: Calcium Gluconate [IVP] IVP 1 gm, administered: 09/02/2016 10:30:00 PM IV NS IV Fluids bolus 0, then 1000 mL/hr, administered: 09/02/2016 10:32:00 PM Sodium Bicarbonate [IVP] IVP 50 meq, administered: 09/02/2016 11:19:00 PM Insulin REG [IVP] IVP 10 unit, administered: 09/02/2016 11:22:00 PM D-50 [IVP] IVP 1 Amp, administered: 09/02/2016 11:28:00 PM Kayexalate [PO] PO 30 gm, administered: 09/02/2016 11:50:00 PM The following Medications were prescribed to the patient: None.
--- NOTE | 2016-09-04 13:18 | ED DISCHARGE INSTRUCTIONS ---
Patient: OLIVIA GASTON General Instructions [facility] VisitID: [id number] [address] [place] [address] 89y, F Registration Date/Time: 09/02/2016 Fever. Chronic urinary tract infection with cystitis. No pyelonephritis or hematuria. Not associated with indwelling catheter or obstruction. Hyperkalemia. Mild hypocalcemia. Moderate hyponatremia. (Electronically signed by Radhika Almazan A.R.N.P. 09/04/2016 13:18)
--- NOTE | 2016-09-04 13:18 | ED MAR SUMMARY ---
..... Medication Administration Record [facility] [address] [place] [address] Patient: OLIVIA GASTON Visit ID: [id number] 89y, F Weight: 61.2 kg Height/Length: 64 in BMI: 23.2 ALLERGIES: Codeine, Fentanyl Given 22:30 09/02/2016 Deborah Carrion R.N. Medication Administered: CALCIUM GLUCONATE [IVP], Dose: 1 gm IVP over 1 hour(s), Site: #2 right forearm. Medication Ordered: Calcium Gluconate IV 1 gm/100mL (HIGH ALERT MEDICATION, NOW). Start 22:32 09/02/2016 Deborah Carrion R.N., Stop 00:12 09/03/2016 India Whitt R.N. Medication Administered: IV NS (SALINE), Dose: IV Fluids over 1 hour(s), Rate: 1000 mL/hr, Dispensed: 1000 mL bag, Site: #1 left forearm. Medication Ordered: IV NS : initial bolus 1000 mL (1000 mL/hr), then none - for X2 (NOW). Given 23:19 09/02/2016 Deborah Carrion R.N. Medication Administered: SODIUM BICARBONATE [IVP], Dose: 50 meq IVP over 5 minute(s), Site: #1 left forearm. Medication Ordered: Sodium Bicarbonate IV 50 meq (NOW). Given 23:22 09/02/2016 Deborah Carrion R.N. Medication Administered: INSULIN REG [IVP], Dose: 10 unit IVP over 2 minute(s), Site: #1 left forearm. Medication Ordered: Insulin Reg IV 10 units (HIGH ALERT MEDICATION, NOW). Given 23:28 09/02/2016 Deborah Carrion R.NSheree Medication Administered: D-50 [IVP], Dose: 1 Amp IVP over 5 minute(s), Site: #1 left forearm. Medication Ordered: D-50 IV 1 amp (HIGH ALERT MEDICATION, NOW, IVP). Given 23:50 09/02/2016 Deborah Carrion R.N. Medication Administered: KAYEXALATE [PO] (SODIUM POLYSTYRENE SULFONATE), Dose: 30 gm Oral Suspension PO. Medication Ordered: Kayexalate PO 30 gm/120mL (NOW).
--- NOTE | 2016-09-04 13:18 | ED MED RECONCILIATION SUMMARY ---
Patient: OLIVIA GASTON Medication Reconciliation Report [facility] VisitID: [id number] [address] [place] [address] 89y, F Registration Date/Time: 09/02/2016 Weight: 61.2 kg Height/Length: 64 in. BMI: 23.2 ALLERGIES: Codeine, Fentanyl The patient's Home Medications are listed below: THE FOLLOWING MEDICATIONS NEED TO BE RECONCILED: Acetaminophen Oral (325 mg) 2 tablets, 4x a day, Pain Aspirin Oral (81 mg) 1 tablet, daily Atorvastatin Calcium Oral (10 mg) 1/2 tablet, 2x a day Benzonatate Oral (100 mg) 1 capsule, 3x a day Docusate Calcium Oral 100 mg, twice daily Ferrous Sulfate Oral (325 (65 Fe) mg) 1 tablet, daily Levobunolol HCl Ophthalmic (0.5 %) 1 drop, R eye Lisinopril Oral (20 mg) 1 tablet, daily Lumigan Ophthalmic (0.01 %) 1 drop, R eye Metoprolol Tartrate Oral (50 mg) 1 tablet, daily ProAir HFA Inhalation 2 puffs, daily Refresh Ophthalmic 2 drops, every 4 hours Senna Oral (8.6 mg) 2 tablets, daily Tramadol HCL Oral (50 mg) 1 tablet, daily The source(s) of the original Home Medication information: patient patient's imported external medical record The following Medications were given to the patient in the Emergency Department: Calcium Gluconate [IVP] IVP 1 gm, administered: 09/02/2016 10:30:00 PM IV NS IV Fluids bolus 0, then 1000 mL/hr, administered: 09/02/2016 10:32:00 PM Sodium Bicarbonate [IVP] IVP 50 meq, administered: 09/02/2016 11:19:00 PM Insulin REG [IVP] IVP 10 unit, administered: 09/02/2016 11:22:00 PM D-50 [IVP] IVP 1 Amp, administered: 09/02/2016 11:28:00 PM Kayexalate [PO] PO 30 gm, administered: 09/02/2016 11:50:00 PM The following Medications were prescribed to the patient: None.
[2016-09-04 14:23] VITALS: BP 173/58
--- NOTE | 2016-09-04 14:23 | DIAGNOSTIC IMAGING REPORT ---
PROCEDURE: XR CHEST 1 VIEW INDICATION: DESATURATION, DROWSY TECHNIQUE: Portable AP view 01:36 p.m. COMPARISON: Chest 09/02/2016 10/28/2014 and 08/10/2012 FINDINGS: There is a new right pleural effusion. Lung remain clear. Heart and pulmonary vasculature unchanged. IMPRESSION: 1. New right small pleural effusion.
--- NOTE | 2016-09-04 16:55 | DIAGNOSTIC IMAGING REPORT ---
PROCEDURE: US BILATERAL COLLETTE INDICATION: Left leg wound. TECHNIQUE: Preexercise ABIs were performed. The patient could not be exercised for post exercise ABIs. COMPARISON: None. FINDINGS: Upper extremity blood pressure 130 systolic. Right lower extremity: Pre exercise posterior tibial tibial COLLETTE is diminished (0.69). Dorsalis pedis COLLETTE is normal (1.1). Left lower extremity: Pre exercise ABIs are normal (posterior tibial 1.1, dorsalis pedis 1.2). IMPRESSION: 1. Right posterior tibial COLLETTE is diminished (0.69) which may be a reflection of trifurcation disease. 2. Right dorsalis pedis COLLETTE is normal. 3. Left lower extremity ABIs are normal.
[2016-09-04 17:36] VITALS: BP 129/47
[2016-09-04 22:19] VITALS: BP 126/61
[2016-09-05 02:22] VITALS: BP 118/64
[2016-09-05 07:00] VITALS: BP 138/57
--- NOTE | 2016-09-05 07:41 | Progress Note ---
Subjective General Brief Hx: 89 y.o female with dehydration who presents with fevers and abnl electrolytes and UTI treated with abx; Ct abd with renal stones and signs of urinary retention. Blood cx pos last pm sens pending. Hurts all over. Had a fever this am. Blood cx and urine seem likely to be growing out pseudomonas and I have broadened her abx coverage awaiting sensativities. Physical Exam Vital Signs / I&Os Vital Signs Date Time Temp Pulse Resp B/P Pulse O2 O2 Flow FiO2 Ox Delivery Rate 09/05 0222 98.2 58 16 118/64 96 Nasal 3.0 Cannula 09/04 2336 Nasal 3.0 Cannula 09/04 2219 98.4 68 16 126/61 95 Nasal 3.0 Cannula 09/04 1736 98.6 53 24 129/47 96 Nasal 3.0 Cannula 09/04 1630 Nasal 3.0 Cannula 09/04 1423 99.5 75 24 173/58 Nasal 3.0 Cannula 09/04 1123 99.0 50 18 117/47 96 Nasal 0.5 Cannula 09/04 0938 0.5 09/04 0840 Nasal 0.5 Cannula 09/04 0736 96 Nasal 1.0 Cannula 09/04 0727 100.4 86 18 145/44 89 Room Air 0.0 I&O 09/05 0000 09/04 1600 09/04 0800 Intake Total 1443 360 250 Output Total 847 036 1055 Balance 493 -365 -750 General Appearance Alert, Cooperative HEENT Normal exam Lungs Clear to auscultation, Normal air movement Cardiovascular Regular rate and rhythm Abdomen Normal exam, Soft Extremities tr edema, venous stasis changes on legs. Trial of zain hose with mild compression as COLLETTE a little low. Neurological Normal speech LAB Results Laboratory Tests 09/05 09/04 0525 1326 Blood Gas Total CO2 Pending ABG pH Pending ABG pCO2 at Pt Temp Pending ABG pO2 at Pt Temp Pending ABG HCO3 Pending ABG O2 Sat Calc/Sary Pending ABG Base Excess Pending ABG Reduced Hgb Pending ABG Carboxyhemoglobin Pending ABG Methemoglobin Pending Tristan Test Pending Other Total Hgb Pending Hgb O2 Saturation Pending FiO2 Pending Blood Gas Comments Pending Chemistry Plasma Sodium (136 - 145 mmol/L) 126 Plasma Potassium (3.5 - 5.1 mmol/L) 4.9 Plasma Chloride (98 - 107 mmol/L) 97 CO2 (Enzymatic) (21 - 32 mmol/L) 17 BUN (7 - 18 mg/dL) 26 Creatinine (0.6 - 1.3 mg/dL) 1.8 Est GFR ( Amer) (mL/min) 34.13 Est GFR (Non-Af Amer) (mL/min) 28.16 Glucose (70 - 110 mg/dL) 90 Plasma Calcium (8.5 - 10.1 mg/dL) 7.3 Plasma Magnesium (1.8 - 2.4 mg/dL) 1.8 Total Bilirubin (0.0 - 1.0 mg/dL) 0.3 AST (15 - 37 U/L) 22 ALT (12 - 78 U/L) 14 Alkaline Phosphatase (46 - 116 U/L) 75 Total Protein (6.4 - 8.2 g/dL) 5.3 Albumin (3.3 - 5.0 g/dL) 1.9 Hematology WBC (4.5 - 11.5 K/uL) 14.5 RBC (4.00 - 5.20 M/uL) 2.90 Hgb (12.0 - 16.0 gm/dL) 8.2 Hct (36.0 - 46.0 %) 25.3 MCV (80 - 100 fL) 87 MCH (26 - 34 pg) 28 RDW (11.6 - 14.8 %) 15.3 Neut % (Auto) (50 - 75 %) 80.7 Lymph % (Auto) (25 - 40 %) 9.9 [place] % (Auto) (3 - 14 %) 8.6 Eos % (Auto) (0 - 4 %) 0.4 Baso % (Auto) (0 - 2 %) 0.4 Plt Count, EDTA (150 - 400 K/uL) 233 PUBS MCHC (31 - 37 g/dL) 32 Assessment and Plan Problem List 1. UTI (lower urinary tract infection) Plan UTI -with PSA likely and waiting on sens. 2. Bladder retention Plan continue manjarrez 3. Fever Plan Has been with fever that is up and down some will continue abx and await sens. 4. Hyperkalemia Plan Is doing well at this time. 5. Acute renal disease Plan Has elevation in CR and improving some with hydration. 6. Dehydration Plan Improved with stable vitals. 7. Diarrhea Plan Has liq stools and rectal tube. 8. Hyponatremia Plan Watching on this ... needs hydration with elevation in CR but likely to worsen her low NA. Watch only at this time. 9. Anemia Plan Minor without symptoms but still monitor.
[2016-09-05 11:10] VITALS: BP 106/44
[2016-09-05 14:30] VITALS: BP 129/51
[2016-09-05 18:05] VITALS: BP 140/54
[2016-09-05 23:28] VITALS: BP 115/49
[2016-09-06 03:41] VITALS: BP 113/43
[2016-09-06 06:55] VITALS: BP 129/47
--- NOTE | 2016-09-06 07:31 | Progress Note ---
Subjective General Brief Hx: 89 y.o female with dehydration who presents with fevers and abnl electrolytes and UTI treated with abx; Ct abd with renal stones and signs of urinary retention. Blood cx pos with pseudamonas and is on appropriate abx. Has been with temps still up/ down. Patient states that she is still very weak, hurts all over, doesn't like the blood draws and around the same. "I haven't yet" Stil complains of a very dry mouth and very weak, chronic back pain. Physical Exam Vital Signs / I&Os Vital Signs Date Time Temp Pulse Resp B/P Pulse O2 O2 Flow FiO2 Ox Delivery Rate 09/06 0655 98.2 52 20 129/47 100 Nasal 3.0 Cannula 09/06 0341 98.2 53 16 113/43 100 Nasal 3.0 Cannula 09/05 2328 98.4 51 16 115/49 100 Nasal 3.0 Cannula 09/05 2043 3.0 09/05 1932 Nasal 3.0 Cannula 09/05 1805 98.2 50 16 140/54 94 Nasal 3.0 Cannula 09/05 1430 97.9 50 16 129/51 100 Nasal 3.0 Cannula 09/05 1110 98.2 50 17 106/44 100 Nasal 3.0 Cannula 09/05 0850 Nasal 3.0 Cannula 09/05 0735 3.0 I&O 09/06 0000 09/05 1600 09/05 0800 Intake Total 1593 1120 1440 Output Total 850 650 890 Balance 743 470 550 General Appearance Alert, Cooperative, No acute distress HEENT Normal exam Lungs Clear to auscultation, Normal air movement Cardiovascular Regular rate and rhythm Abdomen Soft, minimally tender non focal Extremities venous stasis changes LAB Results Laboratory Tests 09/06 0450 Chemistry Plasma Sodium (136 - 145 mmol/L) 124 Plasma Potassium (3.5 - 5.1 mmol/L) 3.8 Plasma Chloride (98 - 107 mmol/L) 96 CO2 (Enzymatic) (21 - 32 mmol/L) 16 BUN (7 - 18 mg/dL) 25 Creatinine (0.6 - 1.3 mg/dL) 1.9 Est GFR ( Amer) (mL/min) 32.06 Est GFR (Non-Af Amer) (mL/min) 26.45 Glucose (70 - 110 mg/dL) 122 Plasma Calcium (8.5 - 10.1 mg/dL) 6.9 Plasma Magnesium (1.8 - 2.4 mg/dL) 1.7 Hematology WBC (4.5 - 11.5 K/uL) 10.6 RBC (4.00 - 5.20 M/uL) 2.68 Hgb (12.0 - 16.0 gm/dL) 7.5 Hct (36.0 - 46.0 %) 23.4 MCV (80 - 100 fL) 87 MCH (26 - 34 pg) 28 RDW (11.6 - 14.8 %) 15.6 Neut % (Auto) (50 - 75 %) 71.8 Lymph % (Auto) (25 - 40 %) 14.6 [place] % (Auto) (3 - 14 %) 8.5 Eos % (Auto) (0 - 4 %) 3.7 Baso % (Auto) (0 - 2 %) 1.4 Plt Count, EDTA (150 - 400 K/uL) 215 PUBS MCHC (31 - 37 g/dL) 32 Assessment and Plan Problem List 1. UTI (lower urinary tract infection) Plan On abx with slow improvement. 2. Bladder retention Plan manjarrez in place 3. Fever Plan Related to uti and bacteremia 4. Hyperkalemia Plan improved 5. Acute renal disease Plan Now mostly CRI cr stable just under 2.0 6. Dehydration 7. Diarrhea Plan Has rectal tube and some chronic diarrhea. 8. Hyponatremia Plan Decrease IVF rate, change to NS, and will continue to monitor 9. Anemia Plan Has continued decrease in hct and add on feso4
[2016-09-06 11:22] VITALS: BP 137/37
[2016-09-06 14:25] VITALS: BP 117/30
[2016-09-06 18:25] VITALS: BP 133/41
[2016-09-07] VITALS (7 sets, daily range): BP systolic 117–147; BP diastolic 33–54
--- NOTE | 2016-09-07 07:14 | Progress Note ---
Subjective General Brief Hx: 89 y.o female with dehydration who presents with fevers and abnl electrolytes and UTI treated with abx; Ct abd with renal stones and signs of urinary retention. Blood cx pos with pseudamonas and is on appropriate abx. Patient states this am she is now starting to feela little better. Has tried to get up to chair a couple times but states that her vertigo is terrible. Has very dry mouth and is chronic and not wanting to take the cholestyramine. Denies cp,sob. Physical Exam Vital Signs / I&Os Vital Signs Date Time Temp Pulse Resp B/P Pulse O2 O2 Flow FiO2 Ox Delivery Rate 09/07 0705 98.4 50 20 120/34 98 Nasal 3.0 Cannula 09/07 0329 97.9 52 16 118/54 99 Nasal 3.0 Cannula 09/07 0030 Nasal 3.0 Cannula 09/07 0029 97.3 51 22 134/50 98 Nasal 3.0 Cannula 09/06 2059 3.0 09/06 2030 Nasal 3.0 Cannula 09/06 1825 97.3 50 20 133/41 100 Nasal 3.0 Cannula 09/06 1425 97.9 102 20 117/30 84 Room Air 09/06 1122 99.1 48 20 137/37 100 Nasal 3.0 Cannula 09/06 1024 Nasal 3.0 Cannula 09/06 0726 3.0 I&O 09/07 0000 09/06 1600 09/06 0800 Intake Total 1314 1040 1530 Output Total 1000 750 675 Balance 314 290 855 General Appearance Alert, Cooperative HEENT Normal exam Lungs Clear to auscultation, Normal air movement Cardiovascular Regular rate and rhythm Abdomen Soft, No tenderness Extremities No edema LAB Results Laboratory Tests 09/07 0525 Chemistry Plasma Sodium (136 - 145 mmol/L) 128 Plasma Potassium (3.5 - 5.1 mmol/L) 4.5 Plasma Chloride (98 - 107 mmol/L) 99 CO2 (Enzymatic) (21 - 32 mmol/L) 16 BUN (7 - 18 mg/dL) 22 Creatinine (0.6 - 1.3 mg/dL) 1.8 Est GFR ( Amer) (mL/min) 34.13 Est GFR (Non-Af Amer) (mL/min) 28.16 Glucose (70 - 110 mg/dL) 85 Plasma Calcium (8.5 - 10.1 mg/dL) 7.2 Plasma Magnesium (1.8 - 2.4 mg/dL) 1.7 Hematology WBC (4.5 - 11.5 K/uL) 11.1 RBC (4.00 - 5.20 M/uL) 3.06 Hgb (12.0 - 16.0 gm/dL) 8.7 Hct (36.0 - 46.0 %) 26.7 MCV (80 - 100 fL) 87 MCH (26 - 34 pg) 28 RDW (11.6 - 14.8 %) 15.2 Neut % (Auto) (50 - 75 %) 70.9 Lymph % (Auto) (25 - 40 %) 12.6 [place] % (Auto) (3 - 14 %) 7.3 Eos % (Auto) (0 - 4 %) 5.6 Baso % (Auto) (0 - 2 %) 3.6 Plt Count, EDTA (150 - 400 K/uL) 228 PUBS MCHC (31 - 37 g/dL) 33 Assessment and Plan Problem List 1. UTI (lower urinary tract infection) Plan Continue on abx for pseudamonas. Has bacteremia with same. 2. Diarrhea Plan Has been with some acute on chronic diarrhea, doesn't like the cholestyramine. 3. Dehydration Plan improved 4. Acute renal disease Plan CR improved some but still with chronic elevation 5. Anemia Plan Has anemia that is slowly going down now on Fe 6. Hyponatremia Plan Stable at this time and will re check in am.
[2016-09-08 03:12] VITALS: BP 134/39
[2016-09-08 06:36] VITALS: BP 132/31
[2016-09-08 10:17] VITALS: BP 150/45
--- NOTE | 2016-09-08 10:51 | Progress Note ---
Subjective General Brief Hx: 89 y.o female with dehydration who presents with fevers and abnl electrolytes and UTI treated with abx; Ct abd with renal stones and signs of urinary retention. Blood cx pos with pseudamonas and is on appropriate abx. Currently patient is doing a little better. Was strong enough to sit in a chair to have breakfast. Bottom still hurting lots. Physical Exam Vital Signs / I&Os Vital Signs Date Time Temp Pulse Resp B/P Pulse O2 O2 Flow FiO2 Ox Delivery Rate 09/08 1017 97.7 46 18 150/45 97 Nasal 2.0 Cannula 09/08 0842 2.0 09/08 0833 2.0 09/08 0636 97.9 48 18 132/31 97 Nasal 3.0 Cannula 09/08 0312 98.4 48 18 134/39 97 Nasal 3.0 Cannula 09/08 0104 3.0 09/07 2317 97.9 51 20 147/52 100 Nasal 3.0 Cannula 09/07 2050 3.0 09/07 1810 97.5 49 16 137/33 95 Nasal Cannula 09/07 1557 Nasal 3.0 Cannula 09/07 1429 97.5 47 20 117/34 100 Nasal 3.0 Cannula 09/07 1149 98.1 50 20 121/41 98 Nasal 3.0 Cannula I&O 09/08 0000 09/07 1600 09/07 0800 Intake Total 750 1200 1376 Output Total 955 265 9952 Balance 0 500 76 General Appearance Alert, Cooperative, talkative. HEENT Normal exam Lungs Clear to auscultation, Normal air movement Cardiovascular Regular rate and rhythm Abdomen Soft, No tenderness Extremities No edema Assessment and Plan Problem List 1. UTI (lower urinary tract infection) Plan Doing better at this time. 2. Bladder retention Plan manjarrez in place 3. Bacteremia due to Pseudomonas Plan Patient to have a total 14 days on the current abx. 4. Diarrhea Plan Has diarrhea with rectal tube, lots of irritation at bottom and skin breakdown. 5. Acute renal disease Plan Chronic renal dz stable. 6. Fever Plan Resolved with abx.
--- NOTE | 2016-09-08 10:51 | Progress Note ---
Subjective General Brief Hx: 89 y.o female with dehydration who presents with fevers and abnl electrolytes and UTI treated with abx; Ct abd with renal stones and signs of urinary retention. Blood cx pos with pseudamonas and is on appropriate abx. Currently patient is doing a little better. Was strong enough to sit in a chair to have breakfast. Bottom still hurting lots. Physical Exam Vital Signs / I&Os Vital Signs Date Time Temp Pulse Resp B/P Pulse O2 O2 Flow FiO2 Ox Delivery Rate 09/08 1017 97.7 46 18 150/45 97 Nasal 2.0 Cannula 09/08 0842 2.0 09/08 0833 2.0 09/08 0636 97.9 48 18 132/31 97 Nasal 3.0 Cannula 09/08 0312 98.4 48 18 134/39 97 Nasal 3.0 Cannula 09/08 0104 3.0 09/07 2317 97.9 51 20 147/52 100 Nasal 3.0 Cannula 09/07 2050 3.0 09/07 1810 97.5 49 16 137/33 95 Nasal Cannula 09/07 1557 Nasal 3.0 Cannula 09/07 1429 97.5 47 20 117/34 100 Nasal 3.0 Cannula 09/07 1149 98.1 50 20 121/41 98 Nasal 3.0 Cannula I&O 09/08 0000 09/07 1600 09/07 0800 Intake Total 750 1200 1376 Output Total 247 887 6548 Balance 0 500 76 General Appearance Alert, Cooperative, talkative. HEENT Normal exam Lungs Clear to auscultation, Normal air movement Cardiovascular Regular rate and rhythm Abdomen Soft, No tenderness Extremities No edema Assessment and Plan Problem List 1. UTI (lower urinary tract infection) Plan Doing better at this time. 2. Bladder retention Plan manjarerz in place 3. Bacteremia due to Pseudomonas Plan Patient to have a total 14 days on the current abx. 4. Diarrhea Plan Has diarrhea with rectal tube, lots of irritation at bottom and skin breakdown. 5. Acute renal disease Plan Chronic renal dz stable. 6. Fever Plan Resolved with abx.
[2016-09-08 14:18] VITALS: BP 154/43
[2016-09-08 18:31] VITALS: BP 151/30
[2016-09-08 22:53] VITALS: BP 147/54
[2016-09-09 02:05] VITALS: BP 149/45
[2016-09-09 06:23] VITALS: BP 151/68
[2016-09-09] MEDS ORDERED: NYSTATIN100000 M2 TOP (07:38)
[2016-09-09] MEDS ORDERED: ZOSYN IV ×2 (07:42→07:43)
--- NOTE | 2016-09-09 07:45 | Provider's Discharge Care Plan ---
Problem, Goal, Plan Problem List 1. Bacteremia due to Pseudomonas Instructions: IV Abx x 8 days, PT/OT for weakness 2. Anemia Instructions: Take meds as directed 3. Bladder retention Instructions: keep manjarrez in and follow up with urology Dr Hubbard
--- NOTE | 2016-09-09 08:03 | Discharge Summary ---
Discharge Summary Report Admit Date 09/02/16 Discharge Date 09/09/16 Admission Diagnosis 1-UTI 2-hyperkalemia 3-anemia 4-leukocytosis Discharge Diagnosis 1-UTI 2-hyperkalemia 3-anemia 4-leukocytosis 5-urinary retention 6-bacteremia pseudomonas Brief History This is an 89-year-old female who presents to the emergency department with fever and urinary tract infection symptoms. She has had recurrent urinary tract infections including urinalysis that is elevated. She recently had a pseudomonal infection. She is still on Cipro for treating that. Weakness. Hospital Course 1-UTI- pseuodomonas and has distended bladder 2-hyperkalemia- is better post treatment with kayexalate 5-ekqigg-eugpcbb and stable. 4-leukocytosis- improved with zosyn 5-urinary retention- manjarrez cath 6-bacteremia pseudomonas- is with treatment of this with iv abx based on sensativities and doing well. General Appearance Alert, Cooperative HEENT Atraumatic Lungs Clear to auscultation, Normal air movement Cardiovascular Regular Rate Abdomen Soft, No tenderness Skin skin break down on bottom ? related to chronic incontinence of stool and urine. Neurological weak but oriented Lab/Imaging Laboratory Tests 09/09 0541 Chemistry Plasma Sodium (136 - 145 mmol/L) 132 Plasma Potassium (3.5 - 5.1 mmol/L) 4.2 Plasma Chloride (98 - 107 mmol/L) 103 CO2 (Enzymatic) (21 - 32 mmol/L) 17 BUN (7 - 18 mg/dL) 21 Creatinine (0.6 - 1.3 mg/dL) 1.8 Est GFR ( Amer) (mL/min) 34.13 Est GFR (Non-Af Amer) (mL/min) 28.16 Glucose (70 - 110 mg/dL) 84 Plasma Calcium (8.5 - 10.1 mg/dL) 7.4 Hematology WBC (4.5 - 11.5 K/uL) 8.6 RBC (4.00 - 5.20 M/uL) 3.03 Hgb (12.0 - 16.0 gm/dL) 8.5 Hct (36.0 - 46.0 %) 26.0 MCV (80 - 100 fL) 86 MCH (26 - 34 pg) 28 RDW (11.6 - 14.8 %) 15.8 Neut % (Auto) (50 - 75 %) 59.5 Lymph % (Auto) (25 - 40 %) 21.7 [place] % (Auto) (3 - 14 %) 7.9 Eos % (Auto) (0 - 4 %) 8.1 Baso % (Auto) (0 - 2 %) 2.8 Plt Count, EDTA (150 - 400 K/uL) 224 PUBS MCHC (31 - 37 g/dL) 33 Discharge Instructions/Meds Patient to D/c to SNF for PT and IV abx. Will continue for 14 days of zosyn. f/u with urology for UTI recurrent with some non obstructing stones. Current Medications Sig/Earle Start time Last Medication Dose Route Stop Time Status Admin Ferrous Sulfate 325 MG DAILY 09/06 0900 AC 09/08 PO 0817 Piperacillin/ 50 ML Q8HR 09/04 1500 AC 09/09 Tazobactam/Dextrose IV 0526 Metoprolol Succinate 25 MG DAILY 09/03 0900 AC 09/08 PO 0817 Nystatin See Dose TID 09/03 0600 AC 09/09 Insts (1) TOP 0526 Acetaminophen 650 MG Q6H PRN 09/02 2245 AC 09/08 PO 2150 Ondansetron HCl 4 MG Q6H PRN 09/02 2245 AC 09/05 PO 0831 Dose Instructions: (1)Nystatin: TO AFFECTED AREA
--- NOTE | 2016-09-09 11:10 | DIAGNOSTIC IMAGING REPORT ---
PROCEDURE: XR CHEST 1 VIEW INDICATION: PICC PLACEMENT TECHNIQUE: Single view chest. 1052 hours COMPARISON: 09/04/2016 FINDINGS: New right-sided PICC line is in place. The tip is in the mid to distal SVC, likely about 2.5 cm away from the cavoatrial junction. Dual lead left-sided transvenous pacemaker in place. Mild cardiomegaly. Retrocardiac/left base density now present with possible small left effusion. Coarse interstitial markings diffusely. The right lung is clear. No central venous congestion. Osseous structures are mildly demineralized. IMPRESSION: 1. Adequate placement of right-sided PICC line. 2. Development of retrocardiac density and possible small left effusion, probably atelectatic change, possibly infectious or inflammatory. Correlate clinically. 3. Mild cardiomegaly without CHF. Stable pacemaker. 4. Preliminary findings called to Theresa from the PICC line team and to the floor.
[2016-09-19] MEDS ORDERED: LISINOPRIL10 MG PO ×2 (20:13→20:14)
[2016-09-19] MEDS ORDERED: DOCUSATE SODIU100 MG PO (20:15)
[2016-09-19] MEDS ORDERED: FERROUS SULFAT325 M1 PO (20:16)
[2016-09-19] MEDS ORDERED: METOPROLOL SUCC50 MG PO (20:18)
[2016-09-19] MEDS ORDERED: REFRESH TEARS0.5 % IO (20:20)
[2016-09-19] MEDS ORDERED: NYSTATIN100000 M2 TOP (20:23)
[2016-09-19] MEDS ORDERED: DULCOLAX10 MG PR (20:29)
[2016-09-19] MEDS ORDERED: MILK OF MAGNESI10 ML PO (20:32)
[2016-09-19] MEDS ORDERED: SENNA-LAX8.6 MG PO (20:35)
[2016-09-19] MEDS ORDERED: TRAMADOL HCL50 MG PO (20:36)
[2016-09-23] MEDS ORDERED: METOPROLOL SUCC50 MG PO (10:11)
== END 2016-09-09 15:15 | DRG 872 ==
LOC: ED SRH 19:43 → TRANS SRH 22:26 → ACUTE2 SRH 22:43
PROVIDERS: ADMIT Student in an Organized Health Care Education/Training Program
PROC: 0T9B70Z Drainage of Bladder with Drainage Device, Via Natural or Artificial Opening (ICD-10-PCS; principal; 2016-09-03)
PROC: 02HV33Z Insertion of Infusion Device into Superior Vena Cava, Percutaneous Approach (ICD-10-PCS; principal; 2016-09-03)
DX: A41.52 Sepsis due to Pseudomonas (principal); N39.0 Urinary tract infection, site not specified; E87.1 Hypo-osmolality and hyponatremia; B96.5 Pseudomonas (aeruginosa) (mallei) (pseudomallei) as the cause of diseases classified elsewhere; R33.9 Retention of urine, unspecified; E86.0 Dehydration; E87.5 Hyperkalemia; R19.7 Diarrhea, unspecified; L98.8 Other specified disorders of the skin and subcutaneous tissue; N28.9 Disorder of kidney and ureter, unspecified; D64.9 Anemia, unspecified; Z95.0 Presence of cardiac pacemaker
CPT/HCPCS: 81460; 83463; 83475; 83504; 84189; 85244; 86045; 87115; 90004; 90047; 90065; 90074; 90100; 90112; 90148; 90455; 90469; 91400; 92031; 92720; 93004; 95059